=== PATIENT | male | born 1950 | race Caucasian/White ===

== ENCOUNTER 2016-07-24 18:50 | Inpatient (IN) | payer BC ==
[2016-07-24] MEDS ORDERED: NORMAL SALINE 10 ML SYRINGE FLUSH IVP PRN (19:07)
[2016-07-24] MEDS ORDERED: Sodium Chloride 0.9% 1,000 ML PRIMARY IV ONE (19:07)
--- NOTE | 2016-07-24 19:30 | EKG ---
[address] [place] [address] Measurements Intervals [place] Rate: 125 P: 101 MT: 136 QRS: 89 QRSD: 97 T: 79 QT: 308 QTc: 382 Interpretive Statements SINUS TACHYCARDIA WITH OCCASIONAL VENTRICULAR PREMATURE COMPLEXES RIGHT VENTRICULAR CONDUCTION DELAY ABNORMAL RHYTHM ECG Compared to ECG 04/28/2016 02:51:56 Ventricular premature complex(es) now present Electronically Signed On 07-25-16 12:36:46 MDT by Ron Valentino [email or web address]
[2016-07-24 19:39] LABS: BASOPHILS # (AUTO) 0.03 10*3/UL; BASOPHILS % (AUTO) 0.2 % (0-1); EOSINOPHILS # (AUTO) 0.09 10*3/UL; EOSINOPHILS % (AUTO) 0.7 % (0-8); HEMATOCRIT 39.2 % (42.0-52.0); HEMOGLOBIN 12.7 g/dL (14.0-18.0); LYMPHOCYTES # (AUTO) 0.89 10*3/uL; MEAN CORPUSCULAR HEMOGLOBIN 29.8 PG (27-31); MEAN CORPUSCULAR HGB CONC 32.4 g/dL (33-37); MEAN PLATELET VOLUME 9.6 FL (7.4-12.2); MONOCYTES # (AUTO) 0.79 10*3/UL (0.3-0.8); MONOCYTES % (AUTO) 6.2 % (5-15); NEUTROPHILS # (AUTO) 10.96 10*3/UL; NEUTROPHILS % (AUTO) 85.6 % (50-80); RED BLOOD COUNT 4.26 10^6/uL (4.70-6.10)
[2016-07-24 19:41] LABS: PLATELET MORPHOLOGY COMMENT NORMAL MORPHOLOGY (NORM); RBC MORPHOLOGY COMMENT NORMAL MORPHOLOGY (NORM); WBC MORPHOLOGY COMMENT NORMAL MORPHOLOGY (NORM)
[2016-07-24 19:43] LABS: BLOOD UREA NITROGEN 11 mg/dL (7-22); CALCIUM 9.8 mg/dL (8.7-10.7); EST GLOMERULAR FILTRATION > 60 (>60 ml/min/1.73m(2)); SERUM ALBUMIN 4.4 g/dL (3.5-4.8)
[2016-07-24 19:49] LABS: VENOUS PCO2 56.6 mmHg (45-55); VENOUS PH 7.35 (7.32-7.42)
[2016-07-24 19:58] LABS: C-REACTIVE PROTEIN 23.6 mg/dL (0.0-0.9)
--- NOTE | 2016-07-24 20:09 | PDOC ---
Dyspnea HPI - General Chief Complaint: Dyspnea Stated Complaint: DIFFICULTY BREATHING WITH TACHYCARDIA Date Seen by Provider: 07/24/16 Time Seen by Provider: 19:00 Source: POSITIVE: Patient, EMS, Other (daughter) Exam Limitations: POSITIVE: No limitations Treatment Prior to Arrival: REPORTS: Oxygen, Albuterol Neb Treatment, Other ( DuoNeb and Solu-Medrol 125 mg IV per EMS.) - History of Present Illness Initial Comments: The patient is a 65-year-old male who presents to the emergency department with increased shortness of breath by ambulance. He does have a history of COPD as well as a history of lung cancer. He states that he completed a course of radiation and chemotherapy in October of last year. He had a PET scan 2 weeks ago and was told that he is cancer free. He states for the past couple of days he has had increased cough and shortness of breath. This evening he became very short of breath and called 911. When EMS arrived the patient was hypoxic on his baseline 2-1/2 L. He had wheezing with decreased air movement. He received a DuoNeb as well as an albuterol neb treatment per EMS in route. He also received Solu-Medrol 125 mg IV. On arrival to the emergency department he states that the breathing treatments seem to have helped him some. He does wear oxygen at home generally at 2 L and he does use an albuterol inhaler as needed. He does report some chills over the past couple of days and is unsure about fever. He denies any chest pain or any other associated symptoms. - Patient Home Medications Home Medications: Home Medications Gabapentin 1 tab PO QID #120 tab 05/07/16 Guaifenesin [Mucinex] 600 mg PO Q12H #60 tab 05/07/16 Hydrocodone/Acetaminophen [Hydrocodon-Acetaminophen 5-325] 1 - 2 tab PO QID PRN #150 tab 05/07/16 Pregabalin [Lyrica] 1 cap PO TID #28 cap 05/20/16 Lorazepam [Ativan] 1 mg PO Q6H PRN PRN #30 06/28/16 - Patient Allergies Allergies/Adverse Reactions: Allergies Allergy/AdvReac Type Severity Reaction Status Date / Time Sulfa (Sulfonamide Allergy Intermediate upset Verified 04/28/16 02:30 Antibiotics) stomach Past Medical History - heen HEENT History: Denies History, Other (please comment) Additional HEENT History: MISSING TEETH, HOARSENESS OF VOICE Cardiovascular History: Hypertension Respiratory History: Other (please comment) Additional Respiratory History: LUNG CA Gastrointestinal History: Other (please comment) Additional Gastrointestinal History: COLON CA Genitourinary History: Denies History Endocrine History: Denies History Musculoskeletal History: Other (please comment) Prosthesis or Implant: No Additional Musculoskeletal History: right knee surgery Neurological History: Denies History Blood Disorders: Denies History Psychiatric History: Denies History History of Sexually Transmitted Diseases: No Cancer History: Lung, Colon Cancer Treatment / Date(s) of Treatment: RADIATION History of MDRO: No History of Other Communicable Diseases: No Alcohol Use: None Substance Use Type: None Previous Surgical History: No Type / Date of Surgery: COLON RESECTION. RIGHT LEG SURGERY CHILD. KNEE SURGERY Anesthesia Reactions: No Malignant Hyperthermia: No Significant Family History: Heart disease, COPD Additional Family History: parents Past Medical History Reviewed: Reviewed - No Changes ROS - Limitations ROS Limitations: No Limitations Constitution: REPORTS: Chills. DENIES: Fever Cardiovascular: DENIES: Chest Pain, Heart Palpitations, Edema Respiratory: REPORTS: Cough Non Productive, Shortness Of Breath, Wheezing Neurological: REPORTS: Denies Neuro Symptoms Gastrointestinal: REPORTS: Denies GI Symptoms Musculoskeletal: REPORTS: Denies MS Symptoms Eyes: REPORTS: Denies Symptoms ENT: REPORTS: Denies Symptoms, Other (He has had hoarseness since he completed his radiation and chemotherapy) Skin: DENIES: Rash Dyspnea Physical Exam - General Appearance General Appearance: REPORTS: Alert, Cooperative, No Acute Distress, Other (The patient does appear chronically ill and is somewhat cachectic) - HEENT HEENT: POSITIVE: Head Inspection Nml, Eyes Inspection Nml, Ears Inspection Nml, Pharynx Inspect. Nml, Dry Mucous Membranes - Neck Neck: REPORTS: Normal Inspection - Respiratory Respiratory: REPORTS: Speaks Full Sentences, Other (He currently does not exhibit any evidence of respiratory distress, he is able to speak although his voice is hoarse chronically since his last round of radiation and chemotherapy in October. He does have diminished breath sounds bilaterally with some coarse rhonchi noted in the bases, left greater than right) - Cardiovascular Cardiovascular: REPORTS: Regular Rate and Rhythm, Heart Sounds Normal - Abdomen Abdomen: Soft: (All Quadrants), Denies Tenderness: (All Quadrants), No Distention: (All Quadrants) - Skin Skin: REPORTS: Intact, No Rash - Extremities Extremity: Normal ROM: (All Extremities), Normal Inspection: (All Extremities) - Neurological / Psychological Neurological: POSITIVE: Oriented X3, Motor Normal, Sensation Normal Dyspnea Progress - Results Reviewed by me Xrays/CTs/US Reviewed by me: Yes Radiology Findings: Portable chest x-ray shows some increased haziness in the left lower lobe with loss of distinction of the diaphragm concerning for early infiltrate. CT scan of his chest for PE protocol is negative for PE, he does have a spiculated mass in the left upper lobe as well as linear opacities in the lung bases which the radiologist thought was atelectasis however could also represent infiltrate. Lab Results Reviewed: Yes Lab Results:: Laboratory Results 07/24/16 07/24/16 07/24/16 Range/Units 19:07 19:09 19:30 WBC 12.80 H (4.8-10.8) 10^3/uL RBC 4.26 L (4.70-6.10) 10^6/uL Hgb 12.7 L (14.0-18.0) g/dL Hct 39.2 L (42.0-52.0) % MCV 92.0 H (80-90) FL MCH 29.8 (27-31) PG MCHC 32.4 L (33-37) g/dL RDW Std Deviation 44.9 (39-50) fL RDW Coeff of Dianne 13.6 (11.5-14.5) % Plt Count 212 (140-350) 10*3/uL MPV 9.6 (7.4-12.2) FL Immature Gran % (Auto) 0.3 (0-5) % Neut % (Auto) 85.6 H (50-80) % Lymph % (Auto) 7.0 L (10-50) % [place] % (Auto) 6.2 (5-15) % Eos % (Auto) 0.7 (0-8) % Baso % (Auto) 0.2 (0-1) % Immature Gran # (Auto) 0.04 10*3/UL Neut # (Auto) 10.96 10*3/UL Lymph # (Auto) 0.89 10*3/uL [place] # (Auto) 0.79 (0.3-0.8) 10*3/UL Eos # (Auto) 0.09 10*3/UL Baso # (Auto) 0.03 10*3/UL WBC Morphology Comment Normal morphology (NORM) Plt Morphology Comment Normal morphology (NORM) RBC Morph Comment Normal morphology (NORM) D-Dimer 1.13 H (0.00-0.59) mg/L VBG pH 7.35 (7.32-7.42) VBG pCO2 56.6 H (45-55) mmHg VBG HCO3 31.2 H (22-26) mmol/L VBG Base Excess 6 H (-2-2) MMOL/L Sodium 135 (135-145) meq/L Potassium 3.9 (3.8-5.2) meq/L Chloride 91 L (98-112) meq/L Carbon Dioxide 32 (23-33) meq/L Anion Gap 12 (5-20) BUN 11 (7-22) mg/dL Creatinine 0.5 L (0.70-1.50) mg/dL Estimated GFR > 60 (>60 ml/min/1.73m(2)) BUN/Creatinine Ratio 22.00 H (6-20) Glucose 112 H (78-110) mg/dL Calculated Osmolality 279.0 (267-292) mOsm/kg Lactic Acid 2.1 (0.70-2.10) MMOL/L Calcium 9.8 (8.7-10.7) mg/dL Magnesium 2.0 (1.6-2.4) mg/dL Total Bilirubin 0.8 (0.3-1.2) mg/dL AST 16 L (21-57) IU/L ALT 11 L (21-72) IU/L Alkaline Phosphatase 99 (38-126) IU/L Troponin I < 0.012 (< 0.040) ng/mL C-Reactive Protein 23.6 H (0.0-0.9) mg/dL Total Protein 8.3 H (6.1-8.0) g/dL Albumin 4.4 (3.5-4.8) g/dL Globulin 3.9 (2.50-4.10) g/dL Albumin/Globulin Ratio 1.10 L (1.3-2.0) mg/g EKG Interpreted/Reviewed By Me:: Yes EKG Interpretation:: POSITIVE: Normal Sinus Rhythm, Normal Intervals, Normal QRS , Normal ST/T, Other (Sinus tachycardia with no acute ST segment or T-wave changes) - Patient's Progress MDM / ED Course: Blood cultures and lactic acid as well as venous blood gas were drawn when he arrived here in the emergency department. His pH was normal at 7.35 with a PCO2 in the 50s. His white count is slightly elevated and his chest x-ray does show an early infiltrate. He was started on Rocephin and Zithromax. His d- dimer was also elevated and therefore a CTA of his chest was ordered to rule out PE. This was negative for PE. Findings were discussed with the patient and his family. The patient will be admitted for treatment of COPD exacerbation and pneumonia. Dr. Neff has agreed to admit the patient. Patient Care Time - Estimated PCT Patient Care Time (In Minutes): 40 Vital Signs - Recent Vital Signs Vital Signs: Vital Signs (Last 8 hours) Temp Pulse Pulse Resp BP BP Pulse Ox 07/25/16 04:54 97.6 F 81 16 140/63 98 07/25/16 03:42 93 07/25/16 03:00 76 93 07/25/16 01:00 18 93 07/24/16 23:50 98.3 F 100 22 140/69 97 07/24/16 23:15 68 20 123/89 92 07/24/16 22:49 18 - VS Reviewed Vital Signs Reviewed: Yes Discharge Clinical Impression: COPD exacerbation, Pneumonia Discharge Disposition: Admit to Inpatient Condition: Fair Date Decision to Admit to Inpatient: 07/24/16 Time Decision to Admit to Inpatient: 22:10
[2016-07-24] MEDS ORDERED: cefTRIAXone Inj 2 GM in Sodium Chloride 0.9% 100 ML IV ONE (20:14)
--- NOTE | 2016-07-24 20:49 | DI ---
HISTORY: None provided. TECHNIQUE: Single frontal projection. FINDINGS: Linear-appearing opacities in the left upper lobe suggests scarring. There is blunting of the left costophrenic angle which could be due to an effusion with adjacent cons olidation. Hyperinflated lungs suggest underlying COPD. The cardiac silhouette is not enlarged. Th ere is no pneumothorax. There is prominence of both hilar regions. IMPRESSION: 1. Blunted left costophrenic angle could be due to effusion with adjacent consolidation. 2. Findings suggestive of chronic obstructive pulmonary disease. 3. Left upper lobe linear opacities likely representing scarring. Recommend correlation with CT.
--- NOTE | 2016-07-24 22:05 | DI ---
HISTORY: Shortness of breath and elevated d-dimer. TECHNIQUE: Contrast enhanced images of the chest were obtained and submitted for interpretation. FINDINGS: Suboptimal examination due to poor filling of the pulmonary arteries. This limits the sen sitivity of the exam. There is no central pulmonary embolism. There are no large filling defects n oted within the pulmonary trunk, main left and right pulmonary arteries. The remainder of the pulmo nary arteries are suboptimally opacified, and largely nondiagnostic. There are small mediastinal nodes present. There are prominent bilateral hilar nodes. There is no a xillary adenopathy. There is no pleural or pericardial effusion. The trachea, main, and segmental bronchi demonstrate no endobronchial lesions. There are scattered areas of panlobular emphysematous change. There is a somewhat spiculated appearing nodule on series 4, image 45, measuring 2.3 cm in the upper lobe of the left lung. A pseudotumor can have a similar appearance. There are scattered areas of air trapping. Breathing artifacts limit the sensitivity of exam. Scattered linear-appearing opacities in the lung bases favor fibrosis, atelectasis, or scarring. Elie e of these coalesce into areas that have appearances equivocal for pulmonary nodules. There is thickening of the GE junction. Limited sections of the upper abdomen demonstrate no acute f indings. There is no nodular thickening of the adrenal glands suggestive of adrenal hyperplasia. There is atherosclerotic calcification of the aorta. IMPRESSION: 1. No gross CT evidence of acute pulmonary emboli demonstrated. 2. Small mediastinal nodes as well as prominent bilateral hilar nodes. 3. Scattered areas of panlobular emphysematous change. 4. Somewhat spiculated appearing left upper lung nodule. A pseudotumor can have a similar appearance . 5. Scattered areas of air trapping. 6. Scattered linear-appearing opacities in the lung bases favor fibrosis, atelectasis, or scarring. Some of these coalesce into areas that have appearances equivocal for pulmonary nodules. 7. Thickened gastroesophageal junction. 8. Suggestion of adrenal gland hyperplasia.
[2016-07-24] MEDS ORDERED: ONDANSETRON 4 MG/2 ML VIAL IVP PRN (22:49)
[2016-07-24] MEDS ORDERED: LIDOCAINE W/ SODIUM BICARB 0.5 ML SYR SUBD PRN (22:49)
[2016-07-25] MEDS: GUAIFENESIN 600 MG TABLET PO SCH ×3 (00:10→20:08)
[2016-07-25 06:08] LABS: BASOPHILS # (AUTO) 0 10*3/UL; BASOPHILS % (AUTO) 0 % (0-1); EOSINOPHILS # (AUTO) 0 10*3/UL; EOSINOPHILS % (AUTO) 0 % (0-8); HEMATOCRIT 34.1 % (42.0-52.0); HEMOGLOBIN 11.2 g/dL (14.0-18.0); LYMPHOCYTES # (AUTO) 0.37 10*3/uL; MEAN CORPUSCULAR HEMOGLOBIN 29.9 PG (27-31); MEAN CORPUSCULAR HGB CONC 32.8 g/dL (33-37); MEAN CORPUSCULAR VOLUME 91.2 FL (80-90); MEAN PLATELET VOLUME 9.5 FL (7.4-12.2); MONOCYTES # (AUTO) 0.19 10*3/UL (0.3-0.8); MONOCYTES % (AUTO) 1.8 % (5-15); NEUTROPHILS # (AUTO) 9.82 10*3/UL; NEUTROPHILS % (AUTO) 94.4 % (50-80); RED BLOOD COUNT 3.74 10^6/uL (4.70-6.10)
[2016-07-25 06:28] LABS: BLOOD UREA NITROGEN 11 mg/dL (7-22); CALCIUM 9.2 mg/dL (8.7-10.7); EST GLOMERULAR FILTRATION > 60 (>60 ml/min/1.73m(2)); PHOSPHORUS 3.2 mg/dl (2.4-4.3); SERUM ALBUMIN 3.9 g/dL (3.5-4.8)
[2016-07-25 06:35] LABS: PLATELET MORPHOLOGY COMMENT NORMAL MORPHOLOGY (NORM); RBC MORPHOLOGY COMMENT NORMAL MORPHOLOGY (NORM)
[2016-07-25 06:36] LABS: WBC MORPHOLOGY COMMENT SEE COMMENTS (NORM)
[2016-07-25] MEDS: IPRATROPIUM/ALBUTEROL SULFATE 3 ML NEB NEB PRN ×4 (07:16→18:53)
[2016-07-25] MEDS ORDERED: PREGABALIN 75 MG CAPSULE PO SCH (09:00)
[2016-07-25] MEDS ORDERED: PREGABALIN PO SCH (09:00)
[2016-07-25] MEDS ORDERED: Non-Formulary Drug (Gabapentin [Gabapentin] 1 TAB) PO SCH (09:00)
[2016-07-25] MEDS: GABAPENTIN 300 MG CAPSULE PO SCH ×3 (09:23→20:08)
[2016-07-25] MEDS: PREGABALIN 75 MG CAPSULE PO SCH ×3 (09:23→20:08)
[2016-07-25] MEDS: HYDROcodone-APAP 5 MG -325 MG TABLET PO PRN ×2 (09:23→19:29)
[2016-07-25] MEDS: ENOXAPARIN SODIUM 40 MG/0.4 ML SYRINGE SUBCUT SCH (09:24)
--- NOTE | 2016-07-25 14:45 | PDOC ---
History and Physical - History of Present Illness Date and Time of Service: 07/25/2016, 1440 Chief Complaint: Cough and shortness breath History of Present Illness: A very pleasant 65-year-old male with COPD and history of lung cancer treated with radiation and chemotherapy last dose of chemotherapy was in October 2015. The patient came in with complaints of increased shortness of breath that came on fairly suddenly although he states his symptoms did start to get worse as of last . He states that he had cough that was productive with some phlegm although he is noted it's been very difficult to clear overall. He is normally on a couple liters of oxygen and they had to increase it in the emergency room. CT scan of the chest was negative for pulmonary emboli and showed a possible spiculated mass in the left upper lobe, but the patient tells me that he was told he had a negative PET scan recently and that his cancer doctor told him that he had scar tissue in the upper lobe on the left. He has not been losing weight. He has not been on any antibiotics and states breathing therapies really have not helped in terms of hand held inhalers. Nothing else seemed to make him feel better through the week and when he came in for evaluation last night, he states that he feels much better after antibiotics and steroids. He states that he's been cutting back in terms of his smoking and quit completely last when his symptoms started. Past Medical History Medical History: 1. History of colon cancer status post right hemicolectomy May this year. 2. History of lung cancer status post chemoradiation. 3. COPD, on 2 L per nasal cannula. 4. Tobacco abuse Surgical History: 1. History of previous right knee surgery. 2. Status post right hemicolectomy Pertinent Family History: Significant for myocardial infarction in his father of a heart attack somewhere around the age of 62. Past Social History: Quit smoking last . . Has children that are healthy. Retired and lives here in [place], [place]. Tobacco Use: Former Smoker (Quit smoking last .) Substance Use Type: None Alcohol Use: None Medication / Allergies Home Medications: Home Medications Medication Instructions Recorded Confirmed Type Gabapentin 1 tab PO QID #120 tab 05/07/16 Clinic Guaifenesin [Mucinex] 600 mg PO Q12H #60 tab 05/07/16 Clinic Hydrocodone/Acetaminophen 1 - 2 tab PO QID PRN #150 tab 05/07/16 Clinic [Hydrocodon-Acetaminophen 5-325] Pregabalin [Lyrica] 1 cap PO TID #28 cap 05/20/16 Clinic Lorazepam [Ativan] 1 mg PO Q6H PRN PRN #30 06/28/16 Clinic Allergies/Adverse Reactions: Allergies Allergy/AdvReac Type Severity Reaction Status Date / Time Sulfa (Sulfonamide Allergy Intermediate upset Verified 04/28/16 02:30 Antibiotics) stomach Review of Systems - Constitutional Constitutional: REPORTS: Other (Has been maintaining his weight. He states that he has not gained weight and has not lost weight since he finished his chemotherapy and radiation therapy.) - Mouth/Throat Mouth/Throat Exam: REPORTS: Hoarseness (Hoarseness since his last chemotherapy dose. He has not had an ear nose and throat evaluation as of this point.) - Respiratory Respiratory: REPORTS: Cough, Sputum, Dyspnea with Exertion - Cardiovascular Cardiovascular: REPORTS: Negative System Review - Gastrointestinal Gastrointestinal / Abdominal: REPORTS: Negative System Review - Genitourinary Genitourinary: REPORTS: Negative System Review - Musculoskeletal Musculoskeletal: REPORTS: Negative System Review - Hematlogic / Lymphatic Hematologic / Lymphatic: REPORTS: Other (Positive for colon cancer and for lung cancer) - Neurological Neurologic: REPORTS: Negative System Review - Psychiatric Psychiatric: DENIES: Anhedonia, Anxiety, Depressed, Hopelessness, Hospitalization, Negative System Review, Other, Panic, Sadness, See HPI, Suicidality, Tearfullness Exam - Vitals Vital Signs: Vital Signs Temperature 98.8 F Temperature Source Temporal Artery Scan Pulse Rate [Pulse Oximeter] 73 Pulse Rate 77 Respiratory Rate 17 Blood Pressure [Left Arm] 112/50 Blood Pressure 123/89 Pulse Ox 97 Oxygen Flow Rate 3 Oxygen Delivery Method Nasal Cannula Height 6 ft Weight 121 lb 12.8 oz - General General Appearance: POSITIVE: No Acute Distress, Cooperative, Thin - Head Head Exam: POSITIVE: Normocephalic, Atraumatic Additional Head Exam Details: Has temporal wasting noted on exam. - Eye Eye Exam: POSITIVE: Normal Appearance, No Scleral Icterus - ENT ENT Exam: POSITIVE: Mucous Membranes Moist - Neck Neck Exam: POSITIVE: Normal Inspection, No Tenderness, No Thyromegaly - Respiratory Respiratory Exam: POSITIVE: Breathing Non Labored, Decreased Breath Sounds Additional Respiratory Exam Details: Markedly decreased breath sounds on auscultation. - Cardiovascular Cardiovascular Exam: POSITIVE: RRR, No Murmur, No Clicks, No Gallops, No Rubs, No JVD - GI/Abdominal GI/Abdominal Exam: POSITIVE: Normal Bowel Sounds, Non Tender, Non Distended, Soft - External Exam: POSITIVE: Deferred Exam: POSITIVE: Deferred - Extremities Extremities Exam: POSITIVE: No Edema Present, No Cyanosis Present, Clubbing Present (in the digits) - Back Back Exam: POSITIVE: Normal Inspection, No CVA Tenderness - Neurological Neurological Exam: POSITIVE: Alert, Oriented x 3, No Facial Droop, Speech Intact / Clear, Moves All Extremities Equally - Psychiatric Psychiatric Exam: POSITIVE: Normal Affect, Normal Mood - Integumentary Integumentary Exam: POSITIVE: Normal Color, Warm, Dry, Intact - Central Line Examination Central Line Present on Admission: No Results - Labs CBC and BMP: 07/25/16 06:00 07/25/16 06:00 Labs - Last 24 Hours: Laboratory Results 07/25/16 Range/Units 06:00 WBC 10.40 (4.8-10.8) 10^3/uL RBC 3.74 L (4.70-6.10) 10^6/uL Hgb 11.2 L (14.0-18.0) g/dL Hct 34.1 L (42.0-52.0) % MCV 91.2 H (80-90) FL MCH 29.9 (27-31) PG MCHC 32.8 L (33-37) g/dL RDW Std Deviation 43.2 (39-50) fL RDW Coeff of Dianne 13.3 (11.5-14.5) % Plt Count 191 (140-350) 10*3/uL MPV 9.5 (7.4-12.2) FL Immature Gran % (Auto) 0.2 (0-5) % Neut % (Auto) 94.4 H (50-80) % Lymph % (Auto) 3.6 L (10-50) % [place] % (Auto) 1.8 L (5-15) % Eos % (Auto) 0 (0-8) % Baso % (Auto) 0 (0-1) % Immature Gran # (Auto) 0.02 10*3/UL Neut # (Auto) 9.82 10*3/UL Lymph # (Auto) 0.37 10*3/uL [place] # (Auto) 0.19 L (0.3-0.8) 10*3/UL Eos # (Auto) 0 10*3/UL Baso # (Auto) 0 10*3/UL WBC Morphology Comment See comments (NORM) Plt Morphology Comment Normal morphology (NORM) RBC Morph Comment Normal morphology (NORM) Sodium 134 L (135-145) meq/L Potassium 4.6 (3.8-5.2) meq/L Chloride 98 (98-112) meq/L Carbon Dioxide 27 (23-33) meq/L Anion Gap 9 (5-20) BUN 11 (7-22) mg/dL Creatinine 0.4 L (0.70-1.50) mg/dL Estimated GFR > 60 (>60 ml/min/1.73m(2)) BUN/Creatinine Ratio 27.50 H (6-20) Glucose 153 H (78-110) mg/dL Calculated Osmolality 279.0 (267-292) mOsm/kg Calcium 9.2 (8.7-10.7) mg/dL Phosphorus 3.2 (2.4-4.3) mg/dl Albumin 3.9 (3.5-4.8) g/dL - EKG Data -: EKG Interpreted by Me Rate: Tachycardia EKG Shows Normal: Sinus Rhythm - Imaging Status: Image Reviewed by Me (CXR, negative on my review for pneumonia; significant for COPD CT of chest shows possible spiculated mass versus scar. not sure if it is a pneumonia. Looks more suspicious for scar or mass.) Assessment and Plan - Patient Problems (1) COPD exacerbation Current Visit: Yes Status: Acute (2) Hyponatremia Current Visit: No Status: Acute (3) Lung cancer Current Visit: No Status: Acute (4) Protein calorie malnutrition Current Visit: No Status: Acute - Assessment / Plan Additional Assessment/Plan Details: Admit the patient. Antibiotics and steroids for COPD exacerbation. Repeat CT scan in 6-8 weeks to recheck this left upper apex scar tissue versus spiculated mass. Continue to quit smoking and encouraged smoking cessation. Instead of inhaled therapies try nebulized therapies and see if patient gets any better relief of shortness breath and cough. Full CODE STATUS. I discussed the above plan with the patient and he agreed.
[2016-07-25] MEDS ORDERED: ALBUTEROL SULFATE 2.5 MG/3 ML NEB PRN (15:00)
[2016-07-25] MEDS: methylPREDNISolone 40 MG/1 ML VIAL IVP SCH ×2 (15:48→20:05)
[2016-07-25] MEDS: cefTRIAXone Inj 2 GM in Sodium Chloride 0.9% 100 ML IV SCH (20:07)
[2016-07-25] MEDS: LORazepam 1 MG TABLET PO PRN (20:08)
[2016-07-26] MEDS: methylPREDNISolone 40 MG/1 ML VIAL IVP SCH ×4 (03:26→20:50)
[2016-07-26] MEDS: IPRATROPIUM/ALBUTEROL SULFATE 3 ML NEB NEB PRN ×4 (06:43→19:28)
[2016-07-26] MEDS: PREGABALIN 75 MG CAPSULE PO SCH ×3 (08:15→20:49)
[2016-07-26] MEDS: GABAPENTIN 300 MG CAPSULE PO SCH ×3 (08:15→20:50)
[2016-07-26] MEDS: GUAIFENESIN 600 MG TABLET PO SCH ×2 (08:15→20:49)
[2016-07-26] MEDS: ENOXAPARIN SODIUM 40 MG/0.4 ML SYRINGE SUBCUT SCH (08:16)
--- NOTE | 2016-07-26 11:50 | PDOC(PROG) ---
Date and Time of Service: 07/26/2016, 1150 Interval History: No chest pain. Shortness of breath is improved. Overall states that he is feeling a little better. Cough present with minimal production. No nausea or vomiting. Voice is still hoarse. Objective : Data - Labs CBC and BMP: 07/25/16 06:00 07/25/16 06:00 Labs - Last 24 Hours: Laboratory Results 07/25/16 07/26/16 Range/Units 06:08 06:08 Iron 122 (49-181) UG/DL TIBC 169 L (261-462) ug/dL % Saturation 72 H (14-50) % Vitamin B12 483 (239-931) pg/mL Serum Folate 5.09 (2.76-20.0) NG/ML Objective : Exam - General General Appearance: No Acute Distress, Cooperative Additional General Exam Details: Vital Signs - Last Taken Temperature 98.1 F 07/26/16 11:04 Pulse Rate 100 07/26/16 11:04 Respiratory Rate 19 07/26/16 11:04 Blood Pressure 138/55 07/26/16 11:04 Pulse Ox 100 07/26/16 11:04 - Eye Eye Exam: No Scleral Icterus - ENT ENT Exam: Mucous Membranes Moist - Respiratory Respiratory Exam: Breathing Non Labored, Decreased Breath Sounds (Improved slightly from yesterday but decreased airflow overall) - Cardiovascular Cardiovascular Exam: RRR, No Murmur, No Clicks, No Gallops, No Rubs, JVD - GI/Abdominal GI/Abdominal Exam: Normal Bowel Sounds, Non Tender, Non Distended, Soft - Extremities Extremities Exam: No Edema Present, No Cyanosis Present, Clubbing Present - Neurological Neurological Exam: Alert, Oriented x 3, No Facial Droop, Speech Intact / Clear, Moves All Extremities Equally Assessment and Plan - Patient Problems (1) COPD exacerbation Current Visit: Yes Status: Acute (2) Hyponatremia Current Visit: No Status: Acute (3) Lung cancer Current Visit: No Status: Acute (4) Protein calorie malnutrition Current Visit: No Status: Acute - Assessment / Plan Additional Assessment/Plan Details: Continue antibiotics and steroids. Stop fluids, telemetry monitoring. Get appointment arranged with ENT in [place] to evaluate hoarse voice. Typically, I like to titrate steroids a little quicker inpatients but given this patient's situation and history of cancer I think I'll hold off on taper today and start tapering steroids tomorrow if he looks better and continues to improve in terms of his symptoms.
[2016-07-26] MEDS: NORMAL SALINE 10 ML SYRINGE FLUSH IVP PRN ×2 (15:28→20:00)
[2016-07-26] MEDS: HYDROcodone-APAP 5 MG -325 MG TABLET PO PRN (15:28)
[2016-07-26] MEDS ORDERED: CALCIUM CARBONATE 500 MG (TUMS) CHEWABLE TABLET PO PRN (16:50)
[2016-07-26] MEDS ORDERED: PANTOPRAZOLE 40 MG TABLET PO ONE (16:50)
[2016-07-26] MEDS ORDERED: Pneumococcal Vacc 13 Syringe 0.5 ML DISP.SYRIN IM SCH (19:45)
[2016-07-26] MEDS: cefTRIAXone Inj 2 GM in Sodium Chloride 0.9% 100 ML IV SCH (19:59)
[2016-07-26] MEDS ORDERED: Pantoprazole Inj 40 MG in Normal Saline Flush 10 ML IVP ONE (20:52)
[2016-07-26] MEDS: LORazepam 1 MG TABLET PO PRN (22:05)
[2016-07-27] MEDS: methylPREDNISolone 40 MG/1 ML VIAL IVP SCH ×3 (02:46→15:10)
[2016-07-27 04:55] VITALS: RESP 20
[2016-07-27] MEDS: IPRATROPIUM/ALBUTEROL SULFATE 3 ML NEB NEB PRN ×3 (06:40→14:53)
[2016-07-27] MEDS ORDERED: PANTOPRAZOLE 40 MG TABLET PO SCH (07:00)
[2016-07-27 08:13] VITALS: TEMP 97
[2016-07-27] MEDS: GABAPENTIN 300 MG CAPSULE PO SCH ×2 (08:40→14:51)
[2016-07-27] MEDS: PREGABALIN 75 MG CAPSULE PO SCH ×2 (08:40→14:51)
[2016-07-27] MEDS: GUAIFENESIN 600 MG TABLET PO SCH (08:40)
[2016-07-27] MEDS: ENOXAPARIN SODIUM 40 MG/0.4 ML SYRINGE SUBCUT SCH (08:40)
[2016-07-27] MEDS: NORMAL SALINE 10 ML SYRINGE FLUSH IVP PRN (08:41)
--- NOTE | 2016-07-27 09:48 | DI ---
CT SOFT TISSUE NECK W/CONTRAST,07/26/2016 12:01 PM: Clinical History: Hoarseness in a smoker. Previous Exam: None at this facility. Findings: Multiple helically acquired CT images are obtained through the chest following the intravenous admini stration of 95 is a of Isovue 300, and demonstrate a spiculated mass within the left upper lobe abutt ing the major fissure. This measures 1.9 x 2.8 cm in cross-section. Diffuse emphysematous changes are seen. The The thyroid is unremarkable. There is mucoperiosteal thickening involving the left maxillary sinus. There is some rightward deviation of the bony nasal septum. The intraorbital structures are unremarkable. Degenerative changes of the cervical spine are seen. The epiglottis is unremarkable. The arytenoid cartilage and vocal cords are unremarkable. There is no cervical lymphadenopathy. Impression: 1. Spiculated 1.9 x 2.8 cm mass within the left lung upper lobe worrisome for malignancy. Recommend b iopsy for further evaluation. 2. No abnormality of the vocal cords or the epiglottis identified. Correlate clinically, and consider laryngoscopy. 3.Mucoperiosteal thickening involving left maxillary sinus. This most likely represents some maxillar y sinus disease.
--- NOTE | 2016-07-27 13:58 | DCSUMMARY ---
Hospitalization Summary Admit Date: 07/25/16 Discharge Date: 07/27/16 Primary Diagnosis:: severe COPD exacerbation Secondary Diagnosis:: Possible new lung mass and voice hoarseness Hospital Course: This is 65-year-old male that came in with known history of lung cancer having done radiation and chemotherapy and last dose was given last October. He came in with cough and some phlegm production. The patient was admitted, treated with antibiotics, and I added steroids. He is overall feeling much better, cough is present but less shortness of breath and increased activity levels. His oxygen came from 6 L down to 3 L/m per nasal cannula. As her course of antibiotics and steroids for COPD exacerbation. Breathing therapies were administered here in the hospital which helped. In terms of the patient's cancer, a CT scan of the chest ruled out pulmonary emboli, but there is this suspicious mass in the left upper lobe of the lung. The patient also has voice hoarseness which is been present for some time, so we did a neck CT scan which was negative other than the mass noted in the left upper lung. To follow-up on these issues, we've rescheduled the patient with Dr. Robertson, the patient's oncologist, and has sent the films up and we'll send records up to their office as well. The masslike finding is spiculated and looks suspicious for a tumor. For the voice hoarseness, we did arrange an ear nose and throat examination for the patient on 08/09/2016. Hopefully they will be able to do an exam in the office that will help him determine whether or not the patient could have some sort of problem with his Lasix. Today, no completes of chest pain, no shortness breath, no nausea or vomiting. The patient would like to go home. Assessment and Plan: 1. As per discharge assessments noted 2. Disposition: Patient is discharged home. 3. Condition on discharge, stable and improved. 4. Diet: regular diet 5. Activities: resume normal activities, but no smoking 6. Follow-Up: 1. See Dr. Dunn in a week to recheck pneumonia 2. 7. Medications at the Time of Discharge: Home Medications Medication Instructions Recorded Confirmed Type Gabapentin 1 tab PO QID #120 tab 05/07/16 07/26/16 Clinic Guaifenesin [Mucinex] 600 mg PO Q12H #60 tab 05/07/16 07/26/16 Clinic Hydrocodone/Acetaminophen 1 - 2 tab PO QID PRN #150 tab 05/07/16 07/26/16 Clinic [Hydrocodon-Acetaminophen 5-325] Pregabalin [Lyrica] 1 cap PO TID #28 cap 05/20/16 07/26/16 Clinic Lorazepam [Ativan] 1 mg PO Q6H PRN PRN #30 06/28/16 07/26/16 Clinic Azithromycin [Zithromax] 500 mg PO DAILY #3 tab 07/27/16 Rx Cefuroxime Axetil [Ceftin] 500 mg PO BID #8 tablet 07/27/16 Rx Prednisone 10 mg PO DAILY #30 tab 07/27/16 Rx 8. Time, care, counseling and coordination of care for this discharge is greater than 30 minutes. Exam - Vitals Vital Signs: Vital Signs Temperature 97 F Temperature Source Temporal Artery Scan Pulse Rate [Pulse Oximeter] 77 Pulse Rate 100 Respiratory Rate 20 Blood Pressure [Left Arm] 124/54 Blood Pressure 123/89 Pulse Ox 97 Oxygen Flow Rate 3 Oxygen Delivery Method Nasal Cannula Height 6 ft Weight 124 lb 6.4 oz - General General Appearance: POSITIVE: No Acute Distress, Cooperative - Head Head Exam: POSITIVE: Atraumatic - Eye Eye Exam: POSITIVE: No Scleral Icterus - Respiratory Respiratory Exam: POSITIVE: Breathing Non Labored, Coarse Breath Sounds (But improved from admission.) - Cardiovascular Cardiovascular Exam: POSITIVE: RRR, No Murmur, No Clicks, No Gallops, No Rubs, No JVD - GI/Abdominal GI/Abdominal Exam: POSITIVE: Normal Bowel Sounds, Non Tender, Non Distended, Soft - Extremities Extremities Exam: POSITIVE: No Edema Present, No Cyanosis Present, Clubbing Present (In the digits) - Neurological Neurological Exam: POSITIVE: Alert, Oriented x 3, Normal Gait, No Facial Droop, Speech Intact / Clear, Moves All Extremities Equally Data Perinent Studies: Laboratory Results 07/24/16 07/24/16 07/24/16 Range/Units 19:07 19:09 19:30 WBC 12.80 H (4.8-10.8) 10^3/uL RBC 4.26 L (4.70-6.10) 10^6/uL Hgb 12.7 L (14.0-18.0) g/dL Hct 39.2 L (42.0-52.0) % MCV 92.0 H (80-90) FL MCH 29.8 (27-31) PG MCHC 32.4 L (33-37) g/dL RDW Std Deviation 44.9 (39-50) fL RDW Coeff of Dianne 13.6 (11.5-14.5) % Plt Count 212 (140-350) 10*3/uL MPV 9.6 (7.4-12.2) FL Immature Gran % (Auto) 0.3 (0-5) % Neut % (Auto) 85.6 H (50-80) % Lymph % (Auto) 7.0 L (10-50) % Horry % (Auto) 6.2 (5-15) % Eos % (Auto) 0.7 (0-8) % Baso % (Auto) 0.2 (0-1) % Immature Gran # (Auto) 0.04 10*3/UL Neut # (Auto) 10.96 10*3/UL Lymph # (Auto) 0.89 10*3/uL Horry # (Auto) 0.79 (0.3-0.8) 10*3/UL Eos # (Auto) 0.09 10*3/UL Baso # (Auto) 0.03 10*3/UL WBC Morphology Comment Normal morphology (NORM) Plt Morphology Comment Normal morphology (NORM) RBC Morph Comment Normal morphology (NORM) D-Dimer 1.13 H (0.00-0.59) mg/L VBG pH 7.35 (7.32-7.42) VBG pCO2 56.6 H (45-55) mmHg VBG HCO3 31.2 H (22-26) mmol/L VBG Base Excess 6 H (-2-2) MMOL/L Sodium 135 (135-145) meq/L Potassium 3.9 (3.8-5.2) meq/L Chloride 91 L (98-112) meq/L Carbon Dioxide 32 (23-33) meq/L Anion Gap 12 (5-20) BUN 11 (7-22) mg/dL Creatinine 0.5 L (0.70-1.50) mg/dL Estimated GFR > 60 (>60 ml/min/1.73m(2)) BUN/Creatinine Ratio 22.00 H (6-20) Glucose 112 H (78-110) mg/dL Calculated Osmolality 279.0 (267-292) mOsm/kg Lactic Acid 2.1 (0.70-2.10) MMOL/L Calcium 9.8 (8.7-10.7) mg/dL Phosphorus (2.4-4.3) mg/dl Magnesium 2.0 (1.6-2.4) mg/dL Iron (49-181) UG/DL TIBC (261-462) ug/dL % Saturation (14-50) % Total Bilirubin 0.8 (0.3-1.2) mg/dL AST 16 L (21-57) IU/L ALT 11 L (21-72) IU/L Alkaline Phosphatase 99 (38-126) IU/L Troponin I < 0.012 (< 0.040) ng/mL C-Reactive Protein 23.6 H (0.0-0.9) mg/dL Total Protein 8.3 H (6.1-8.0) g/dL Albumin 4.4 (3.5-4.8) g/dL Globulin 3.9 (2.50-4.10) g/dL Albumin/Globulin Ratio 1.10 L (1.3-2.0) mg/g Vitamin B12 (239-931) pg/mL Serum Folate (2.76-20.0) NG/ML 07/25/16 07/25/16 07/26/16 Range/Units 06:00 06:08 06:08 WBC 10.40 (4.8-10.8) 10^3/uL RBC 3.74 L (4.70-6.10) 10^6/uL Hgb 11.2 L (14.0-18.0) g/dL Hct 34.1 L (42.0-52.0) % MCV 91.2 H (80-90) FL MCH 29.9 (27-31) PG MCHC 32.8 L (33-37) g/dL RDW Std Deviation 43.2 (39-50) fL RDW Coeff of Dianne 13.3 (11.5-14.5) % Plt Count 191 (140-350) 10*3/uL MPV 9.5 (7.4-12.2) FL Immature Gran % (Auto) 0.2 (0-5) % Neut % (Auto) 94.4 H (50-80) % Lymph % (Auto) 3.6 L (10-50) % Horry % (Auto) 1.8 L (5-15) % Eos % (Auto) 0 (0-8) % Baso % (Auto) 0 (0-1) % Immature Gran # (Auto) 0.02 10*3/UL Neut # (Auto) 9.82 10*3/UL Lymph # (Auto) 0.37 10*3/uL Horry # (Auto) 0.19 L (0.3-0.8) 10*3/UL Eos # (Auto) 0 10*3/UL Baso # (Auto) 0 10*3/UL WBC Morphology Comment See comments (NORM) Plt Morphology Comment Normal morphology (NORM) RBC Morph Comment Normal morphology (NORM) D-Dimer (0.00-0.59) mg/L VBG pH (7.32-7.42) VBG pCO2 (45-55) mmHg VBG HCO3 (22-26) mmol/L VBG Base Excess (-2-2) MMOL/L Sodium 134 L (135-145) meq/L Potassium 4.6 (3.8-5.2) meq/L Chloride 98 (98-112) meq/L Carbon Dioxide 27 (23-33) meq/L Anion Gap 9 (5-20) BUN 11 (7-22) mg/dL Creatinine 0.4 L (0.70-1.50) mg/dL Estimated GFR > 60 (>60 ml/min/1.73m(2)) BUN/Creatinine Ratio 27.50 H (6-20) Glucose 153 H (78-110) mg/dL Calculated Osmolality 279.0 (267-292) mOsm/kg Lactic Acid (0.70-2.10) MMOL/L Calcium 9.2 (8.7-10.7) mg/dL Phosphorus 3.2 (2.4-4.3) mg/dl Magnesium (1.6-2.4) mg/dL Iron 122 (49-181) UG/DL TIBC 169 L (261-462) ug/dL % Saturation 72 H (14-50) % Total Bilirubin (0.3-1.2) mg/dL AST (21-57) IU/L ALT (21-72) IU/L Alkaline Phosphatase (38-126) IU/L Troponin I (< 0.040) ng/mL C-Reactive Protein (0.0-0.9) mg/dL Total Protein (6.1-8.0) g/dL Albumin 3.9 (3.5-4.8) g/dL Globulin (2.50-4.10) g/dL Albumin/Globulin Ratio (1.3-2.0) mg/g Vitamin B12 483 (239-931) pg/mL Serum Folate 5.09 (2.76-20.0) NG/ML Patient Problems - Patient Problem List (1) COPD exacerbation Current Visit: Yes Status: Acute (2) Hyponatremia Current Visit: No Status: Acute (3) Lung cancer Current Visit: Yes Status: Acute (4) Protein calorie malnutrition Current Visit: Yes Status: Acute (5) Hoarseness of voice Current Visit: Yes Status: Acute
== END 2016-07-27 15:30 | disposition home or self-care (01) | DRG 191 ==
LOC: ER 18:50 → MED/SURG 22:13
PROVIDERS: ADMIT Internal Medicine; ATTEND Internal Medicine
DX: J44.1 Chronic obstructive pulmonary disease with (acute) exacerbation (principal); E87.1 Hypo-osmolality and hyponatremia; E46 Unspecified protein-calorie malnutrition; R91.8 Other nonspecific abnormal finding of lung field; R49.0 Dysphonia; Z72.0 Tobacco use
CPT/HCPCS: 36415; 70491; 71010; 71275; 80053; 80069; 82607; 82746; 82803; 83540; 83550; 83605; 83735; 84484; 85025; 85379; 86140; 87040; 87804; 93005; 93010; 94640; 94761; 96365; 96368; 99285; J0696; J1650; J2920; J3490; J7050; J7620

== ENCOUNTER 2016-08-03 13:27 | Emergency (ER) | payer BC ==
[2016-08-03] MEDS ORDERED: Sodium Chloride 0.9% 1,000 ML PRIMARY IV ONE (13:38)
[2016-08-03] MEDS ORDERED: NORMAL SALINE 10 ML SYRINGE FLUSH IVP PRN (13:38)
[2016-08-03 13:54] LABS: BASOPHILS # (AUTO) 0.02 10*3/UL; BASOPHILS % (AUTO) 0.2 % (0-1); EOSINOPHILS # (AUTO) 0.01 10*3/UL; EOSINOPHILS % (AUTO) 0.1 % (0-8); HEMATOCRIT 44.2 % (42.0-52.0); HEMOGLOBIN 14.7 g/dL (14.0-18.0); MEAN CORPUSCULAR HEMOGLOBIN 30.4 PG (27-31); MEAN CORPUSCULAR HGB CONC 33.3 g/dL (33-37); MEAN CORPUSCULAR VOLUME 91.3 FL (80-90); MEAN PLATELET VOLUME 9.3 FL (7.4-12.2); MONOCYTES # (AUTO) 0.61 10*3/UL (0.3-0.8); MONOCYTES % (AUTO) 6.6 % (5-15); NEUTROPHILS # (AUTO) 7.78 10*3/UL; RED BLOOD COUNT 4.84 10^6/uL (4.70-6.10)
[2016-08-03 13:55] LABS: PLATELET MORPHOLOGY COMMENT NORMAL MORPHOLOGY (NORM); RBC MORPHOLOGY COMMENT NORMAL MORPHOLOGY (NORM); WBC MORPHOLOGY COMMENT NORMAL MORPHOLOGY (NORM)
[2016-08-03 14:00] LABS: BLOOD UREA NITROGEN 20 mg/dL (7-22); BUN/CREATININE RATIO 33.33 (6-20); CALCIUM 9.2 mg/dL (8.7-10.7); EST GLOMERULAR FILTRATION > 60 (>60 ml/min/1.73m(2)); SERUM ALBUMIN 4.2 g/dL (3.5-4.8)
[2016-08-03 14:25] LABS: BILIRUBIN,URINE NEGATIVE (NEG); COLOR,URINE YELLOW; GLUCOSE, URINE (UA) NEGATIVE (NEG); NITRATE,URINE NEGATIVE (NEG); OCCULT BLOOD,URINE Trace-intact (NEG); PROTEIN,URINE TRACE mg/dl (NEG); UROBILINOGEN,URINE 0.2 EU/dL (0.2)
[2016-08-03 14:36] VITALS: RESP 20; TEMP 97.6
[2016-08-03 14:36] LABS: CLARITY,URINE CLEAR (CLEAR); RBC,URINE 0-1 /hpf; URINE SAMPLE TYPE VOID
--- NOTE | 2016-08-03 15:04 | DI ---
PA /LATERAL CHEST X-RAY, 08/03/2016 1:35 PM : Clinical History: Chest injury. The patient fell. Right lower lateral chest wall pain. Previous Exam: 07/24/2016. There is no acute soft tissue or bony abnormality. Heart size is normal. There is no pneumothorax or pulmonary contusion. There is no right pleural effusion. There is chronic blunting of the left costop hrenic angle with chronic scarring in the left upper lung field. The left mainstem bronchus is elevat ed. There is centrilobular emphysema. Mediastinal structures are normal. There are no pulmonary nodul es. Readin. No acute rib fracture is identified. There is no pneumothorax or evidence of a pulmonary contusio n or pleural effusion. 2. There is volume loss in the left upper lung field with retraction of the left hilum superiorly. C hronic blunting is present in the left costophrenic angle. There are no surgical clips present to ind icate this patient has had a partial lobectomy.
[2016-08-03] MEDS ORDERED: KETOROLAC 15 MG/1 ML VIAL IVP ONE (15:08)
[2016-08-03 15:42] LABS: VENOUS PH 7.38 (7.32-7.42)
--- NOTE | 2016-08-03 17:03 | PDOC ---
Fall HPI - General Chief Complaint: Dyspnea Stated Complaint: DYSPNEA Date Seen by Provider: 08/03/16 Time Seen by Provider: 13:30 Source: POSITIVE: Patient Exam Limitations: POSITIVE: No limitations Nurse's Notes Reviewed & Considered: Yes EMS Report Reviewed & Considered: Verbal - History of Present Illness Initial Comments: The patient is a 65-year-old male who is evaluated after a fall at home. He has a known history of lung cancer as well as COPD. He was just recently hospitalized with COPD exacerbation and possible pneumonia. He was discharged from the hospital here about a week ago. His family reports that yesterday he seemed to be doing fairly well. Today he apparently tripped and fell hitting the right side of his chest wall on a cabinet. He became very short of breath and was having pain and EMS was subsequently called. The patient did receive a DuoNeb treatment per EMS which seemed to improve his breathing significantly. He is oxygen saturations remained in the mid to upper 90s on baseline 2 L of O2. He was subsequently transported here to the ER for evaluation. He states that he is feeling better once he arrived here. He does have pain over the right posterior lateral chest wall which is worse with breathing or movement. He denies any abdominal pain or any other associated injury. He did not hit his head and denies any loss of consciousness. Have you received a tetanus shot in the past 10 years?: Unknown - Patient Home Medications Home Medications: Home Medications Gabapentin 1 tab PO QID #120 tab 05/07/16 Hydrocodone/Acetaminophen [Hydrocodon-Acetaminophen 5-325] 1 each PO Q6H #150 tablet 08/02/16 Lorazepam [Ativan] 1 mg PO Q6H PRN PRN #60 08/02/16 Tiotropium Br/Olodaterol HCl [Stiolto Respimat Inhal Powell] 2 inh IH DAILY 08/03 - Patient Allergies Allergies/Adverse Reactions: Allergies Allergy/AdvReac Type Severity Reaction Status Date / Time Sulfa (Sulfonamide AdvReac Intermediate upset Verified 08/03/16 13:50 Antibiotics) stomach Past Medical History - heen HEENT History: Denies History, Other (please comment) Additional HEENT History: MISSING TEETH, HOARSENESS OF VOICE Cardiovascular History: Hypertension Respiratory History: Pneumonia, Home Oxygen Use, Other (please comment) Additional Respiratory History: LUNG CA Gastrointestinal History: Other (please comment) Additional Gastrointestinal History: COLON CA Genitourinary History: Denies History Endocrine History: Denies History Musculoskeletal History: Other (please comment) Prosthesis or Implant: No Additional Musculoskeletal History: right knee surgery Neurological History: Denies History Blood Disorders: Denies History Psychiatric History: Denies History History of Sexually Transmitted Diseases: No Cancer History: Lung, Colon Cancer Treatment / Date(s) of Treatment: RADIATION In Past Year Been Physically Harmed or Verbally Threatened: No History of MDRO: No History of Other Communicable Diseases: No Tobacco Use: Current Every Day Smoker Alcohol Use: None Substance Use Type: None Previous Surgical History: No Type / Date of Surgery: COLON RESECTION. RIGHT LEG SURGERY CHILD. KNEE SURGERY Anesthesia Reactions: No Malignant Hyperthermia: No Significant Family History: Heart disease, COPD Additional Family History: parents Past Medical History Reviewed: Reviewed - No Changes ROS - Limitations ROS Limitations: No Limitations Constitution: REPORTS: Denies Symptoms, Weakness (He does have generalized weakness) Cardiovascular: DENIES: Chest Pain (He has some chest wall pain however denies any anterior chest pain) Respiratory: REPORTS: Hurts To Breathe, Shortness Of Breath Neurological: DENIES: Headache, Numbness, Weakness Gastrointestinal: REPORTS: Denies GI Symptoms. DENIES: Abdominal Pain Musculoskeletal: REPORTS: Denies MS Symptoms Fall Physical Exam - General Appearance General Appearance: POSITIVE: Alert, Cooperative, No Acute Distress, Other (He is cachectic and appears chronically ill) - HEENT HEENT: POSITIVE: Head Inspection Nml, Eyes Inspection Nml, Pharynx Inspect. Nml , PERRL, EOMI, Dry Mucous Membranes - Neck Neck: POSITIVE: Painless ROM, Trachea Midline - Respiratory / CVS Respiratory / CVS: POSITIVE: No Respiratory Distress, Heart Sounds Normal, Regular Rate/Rhythm, Other (He has diminished breath sounds bilaterally however they are equal, he does have tenderness over the right low posterior lateral chest wall) - Abdomen Abdomen: Soft: (All Quadrants), Denies Tenderness: (All Quadrants) - Neuro / Psych Neuro / Psych: POSITIVE: Oriented X3, Motor Normal, Sensation Normal - Skin Skin: POSITIVE: Intact - Extremities Extremity Assessment: Normal ROM: (ALL), Normal Inspection: (ALL) Fall Progress - Results Reviewed by me Xrays/CTs/US Reviewed by me: Yes Discussed with Radiologist: Yes Radiology Findings: No evidence of obvious rib fracture, pneumothorax or other acute finding per radiologist on his chest x-ray Lab Results Reviewed: Yes Lab Results:: Laboratory Results 08/03/16 08/03/16 08/03/16 Range/Units 13:46 13:50 14:00 WBC 9.26 (4.8-10.8) 10^3/uL RBC 4.84 (4.70-6.10) 10^6/uL Hgb 14.7 (14.0-18.0) g/dL Hct 44.2 (42.0-52.0) % MCV 91.3 H (80-90) FL MCH 30.4 (27-31) PG MCHC 33.3 (33-37) g/dL RDW Std Deviation 47.2 (39-50) fL RDW Coeff of Dianne 14.5 (11.5-14.5) % Plt Count 147 (140-350) 10*3/uL MPV 9.3 (7.4-12.2) FL Immature Gran % (Auto) 1.5 (0-5) % Neut % (Auto) 84.0 H (50-80) % Lymph % (Auto) 7.6 L (10-50) % Dixon % (Auto) 6.6 (5-15) % Eos % (Auto) 0.1 (0-8) % Baso % (Auto) 0.2 (0-1) % Immature Gran # (Auto) 0.14 10*3/UL Neut # (Auto) 7.78 10*3/UL Lymph # (Auto) 0.70 10*3/uL Dixon # (Auto) 0.61 (0.3-0.8) 10*3/UL Eos # (Auto) 0.01 10*3/UL Baso # (Auto) 0.02 10*3/UL WBC Morphology Comment Normal morphology (NORM) Plt Morphology Comment Normal morphology (NORM) RBC Morph Comment Normal morphology (NORM) VBG pH 7.38 (7.32-7.42) VBG pCO2 61 H (45-55) mmHg VBG HCO3 36 H (22-26) mmol/L VBG Base Excess 11 H (-2-2) MMOL/L Sodium 128 L (135-145) meq/L Potassium 4.4 (3.8-5.2) meq/L Chloride 83 L (98-112) meq/L Carbon Dioxide 36 H (23-33) meq/L Anion Gap 9 (5-20) BUN 20 (7-22) mg/dL Creatinine 0.6 L (0.70-1.50) mg/dL Estimated GFR > 60 (>60 ml/min/1.73m(2)) BUN/Creatinine Ratio 33.33 H (6-20) Glucose 94 (78-110) mg/dL Calculated Osmolality 268.0 (267-292) mOsm/kg Calcium 9.2 (8.7-10.7) mg/dL Magnesium 1.9 (1.6-2.4) mg/dL Total Bilirubin 0.9 (0.3-1.2) mg/dL AST 24 (21-57) IU/L ALT 40 (21-72) IU/L Alkaline Phosphatase 91 (38-126) IU/L Total Protein 7.4 (6.1-8.0) g/dL Albumin 4.2 (3.5-4.8) g/dL Globulin 3.2 (2.50-4.10) g/dL Albumin/Globulin Ratio 1.30 (1.3-2.0) mg/g Ur Collection Type Urine Color Urine Clarity (CLEAR) Urine pH (5.0-8.5) Ur Specific Beaver (1.005-1.030) Urine Protein (NEG) mg/dl Urine Glucose (UA) (NEG) mg/dL Urine Ketones (NEG) Urine Occult Blood (NEG) Urine Nitrate (NEG) Urine Bilirubin (NEG) Urine Urobilinogen (0.2) EU/dL Ur Leukocyte Esterase (NEG) Urine RBC (NONE) /hpf Urine WBC (NONE) Ur Squamous Epith Cells (NONE) Ur Renal Epithelial Cell (NONE) Urine Crystals Urine Bacteria (NONE) Urine Casts (NONE) Urine Mucus (NONE) Urine Trichomonas (NONE) Urine Yeast (NONE) Ur Culture Indicated? 08/03/16 Range/Units 14:30 WBC (4.8-10.8) 10^3/uL RBC (4.70-6.10) 10^6/uL Hgb (14.0-18.0) g/dL Hct (42.0-52.0) % MCV (80-90) FL MCH (27-31) PG MCHC (33-37) g/dL RDW Std Deviation (39-50) fL RDW Coeff of Dianne (11.5-14.5) % Plt Count (140-350) 10*3/uL MPV (7.4-12.2) FL Immature Gran % (Auto) (0-5) % Neut % (Auto) (50-80) % Lymph % (Auto) (10-50) % Dixon % (Auto) (5-15) % Eos % (Auto) (0-8) % Baso % (Auto) (0-1) % Immature Gran # (Auto) 10*3/UL Neut # (Auto) 10*3/UL Lymph # (Auto) 10*3/uL Dixon # (Auto) (0.3-0.8) 10*3/UL Eos # (Auto) 10*3/UL Baso # (Auto) 10*3/UL WBC Morphology Comment (NORM) Plt Morphology Comment (NORM) RBC Morph Comment (NORM) VBG pH (7.32-7.42) VBG pCO2 (45-55) mmHg VBG HCO3 (22-26) mmol/L VBG Base Excess (-2-2) MMOL/L Sodium (135-145) meq/L Potassium (3.8-5.2) meq/L Chloride (98-112) meq/L Carbon Dioxide (23-33) meq/L Anion Gap (5-20) BUN (7-22) mg/dL Creatinine (0.70-1.50) mg/dL Estimated GFR (>60 ml/min/1.73m(2)) BUN/Creatinine Ratio (6-20) Glucose (78-110) mg/dL Calculated Osmolality (267-292) mOsm/kg Calcium (8.7-10.7) mg/dL Magnesium (1.6-2.4) mg/dL Total Bilirubin (0.3-1.2) mg/dL AST (21-57) IU/L ALT (21-72) IU/L Alkaline Phosphatase (38-126) IU/L Total Protein (6.1-8.0) g/dL Albumin (3.5-4.8) g/dL Globulin (2.50-4.10) g/dL Albumin/Globulin Ratio (1.3-2.0) mg/g Ur Collection Type Void Urine Color Yellow Urine Clarity Clear (CLEAR) Urine pH 7.0 (5.0-8.5) Ur Specific Beaver 1.015 (1.005-1.030) Urine Protein Trace (NEG) mg/dl Urine Glucose (UA) Negative (NEG) mg/dL Urine Ketones Negative (NEG) Urine Occult Blood Trace-intact H (NEG) Urine Nitrate Negative (NEG) Urine Bilirubin Negative (NEG) Urine Urobilinogen 0.2 (0.2) EU/dL Ur Leukocyte Esterase Negative (NEG) Urine RBC 0-1 (NONE) /hpf Urine WBC None (NONE) Ur Squamous Epith Cells None (NONE) Ur Renal Epithelial Cell None (NONE) Urine Crystals None Urine Bacteria None (NONE) Urine Casts None (NONE) Urine Mucus Few (NONE) Urine Trichomonas None (NONE) Urine Yeast None (NONE) Ur Culture Indicated? Culture not set - Patient's Progress MDM / ED Course: Initial venous blood gas revealed a pH of 7.38 with a PCO2 of 61. His blood work is all essentially unremarkable except for a slightly low potassium at 128. His x-ray does not reveal any evidence of pneumothorax or obvious displaced rib fracture. These findings were discussed with the patient and his daughter. Initially his daughter thought that he might need to be admitted in the hospital however the patient thought he was able to go home. The patient was given Toradol 15 mg IV for pain. He is advised to continue ibuprofen as needed for pain and has hydrocodone at home which he can take as needed for pain. He is advised return to the emergency room if he develops increased shortness of breath, increased pain, any worsening or change in symptoms. - Consult Counseled: POSITIVE: Patient, Family, RE: Lab Results, RE: Radiology Results, RE : DX, RE: Need for F/U Patient Care Time - Estimated PCT Patient Care Time (In Minutes): 30 Vital Signs - Recent Vital Signs Vital Signs: Vital Signs (Last 8 hours) Temp Pulse Resp BP Pulse Ox 08/03/16 13:26 97.6 F 107 H 20 114/64 96 - VS Reviewed Vital Signs Reviewed: Yes Discharge Clinical Impression: Chest wall contusion Discharge Disposition: Discharged to Home Condition: Fair Patient Instructions Given at Discharge: Contusion in Adults (ED), Chest Wall Pain (ED) Additional Instructions: The chest x-ray does not show any obvious displaced rib fractures or evidence of punctured lung. It is possible that there may be a nondisplaced crack in a rib or this may just be bruising. Recommend continuation of ibuprofen 600 mg every 6 hours as needed for pain. You can take your hydrocodone as needed for pain as well. Return to the emergency room if increased pain or shortness of breath, increased weakness, increased abdominal pain or fever, any worsening or change in symptoms. Recommend follow-up with primary care in 3-5 days. Follow Up With: NONE,NONE [Primary Care Provider] -
== END 2016-08-03 16:45 | disposition home or self-care (01) ==
LOC: ER 13:27
DX: S20.211A Contusion of right front wall of thorax, initial encounter (principal); R06.02 Shortness of breath; W01.198A Fall on same level from slipping, tripping and stumbling with subsequent striking against other object, initial encounter
CPT/HCPCS: 36415; 71020; 80053; 81001; 81003; 82803; 83735; 85025; 96374; 99283; J1885

== ENCOUNTER 2016-12-17 23:08 | Emergency (ER) | payer BC ==
[2016-12-17] MEDS: Sodium Chloride 0.9% 1,000 ML PRIMARY IV ONE (23:10)
[2016-12-17] MEDS ORDERED: NORMAL SALINE 10 ML SYRINGE FLUSH IVP PRN (23:36)
[2016-12-17] MEDS: ALBUTEROL SULFATE 2.5 MG/3 ML NEB ONE (23:51)
[2016-12-17 23:53] LABS: BASOPHILS # (AUTO) 0.07 10*3/UL; BASOPHILS % (AUTO) 1.4 % (0-1); EOSINOPHILS # (AUTO) 0.23 10*3/UL; EOSINOPHILS % (AUTO) 4.5 % (0-8); HEMATOCRIT 37.1 % (42.0-52.0); HEMOGLOBIN 12.3 g/dL (14.0-18.0); LYMPHOCYTES # (AUTO) 1.18 10*3/uL; MEAN CORPUSCULAR HGB CONC 33.2 g/dL (33-37); MEAN CORPUSCULAR VOLUME 93.5 FL (80-90); MEAN PLATELET VOLUME 9.4 FL (7.4-12.2); MONOCYTES # (AUTO) 0.45 10*3/UL (0.3-0.8); MONOCYTES % (AUTO) 8.9 % (5-15); NEUTROPHILS # (AUTO) 3.15 10*3/UL; RED BLOOD COUNT 3.97 10^6/uL (4.70-6.10)
[2016-12-18] LABS: BLOOD UREA NITROGEN 7 mg/dL (7-22); BUN/CREATININE RATIO 11.66 (6-20); CALCIUM 9.5 mg/dL (8.7-10.7); EST GLOMERULAR FILTRATION > 60 (>60 ml/min/1.73m(2)); SERUM ALBUMIN 4.3 g/dL (3.5-4.8)
[2016-12-18 00:02] LABS: C-REACTIVE PROTEIN 2.9 mg/dL (0.0-0.9); MAGNESIUM 1.9 mg/dL (1.6-2.4); PLATELET MORPHOLOGY COMMENT NORMAL MORPHOLOGY (NORM); RBC MORPHOLOGY COMMENT NORMAL MORPHOLOGY (NORM); WBC MORPHOLOGY COMMENT NORMAL MORPHOLOGY (NORM)
[2016-12-18 00:05] VITALS: TEMP 98.1
[2016-12-18 00:08] LABS: VENOUS PH 7.36 (7.32-7.42)
--- NOTE | 2016-12-18 01:56 | DI ---
HISTORY: Lung mass. Dyspnea. COMPARISON: Report only from CT of the chest from 07/25/2016. TECHNIQUE: CT of the chest was performed with contrast and the images were submitted for interpreta tion. FINDINGS: The heart is normal in size. The aorta is within normal limits, noting extensive atherosc lerotic calcifications. Coronary artery calcifications are noted. The pulmonary vascularity is with in normal limits. There is no pulmonary embolus to the level of the segmental arteries, excluding th e left upper lobe. The left superior hilar soft tissue mass extending into the left upper lobe limit s evaluation of the involved extrinsically compressed bronchovascular vasculature. Linear configurat ion of the left upper lobe mass limits definitive measurement, there is central portion measures up t o 2.2 cm in craniocaudal dimension. While images from the comparison study were not able to be locat ed, the measurement given in the previous report is grossly stable to today's study. However, the ch stevie in appearance of the mass cannot be commented on. Otherwise, the central airway is patent. The re is extensive centrilobular and paraseptal emphysema. There is no evidence of pleural effusion or pneumothorax. No acute skeletal pathology is seen. Gastric surgical clips are noted. Otherwise, the imaged portions of the upper abdomen are grossly un remarkable. IMPRESSION: 1. Left upper lobe mass measuring 2.2 cm with extension to the lateral pleural surface and hilum. Co mment on stability as described above. No evidence of metastatic disease. 2. No pulmonary embolus to level of the segmental arteries, excluding the left upper lobe. The previ ously described mass causes extrinsic compression of the left hilar bronchovascular vasculature. 3. Extensive emphysema. NOTIFICATION: The above findings were phoned to Dulce Camara in the ER Department on 12/18/2016 at 04 :23 AM EST.
[2016-12-18] MEDS: ALBUTEROL SULFATE 2.5 MG/3 ML NEB ONE (01:58)
--- NOTE | 2016-12-18 02:02 | PDOC ---
Dyspnea HPI - General Chief Complaint: Respiratory Complaint Stated Complaint: DIFFICULTY BREATHING Date Seen by Provider: 12/17/16 Time Seen by Provider: 23:20 Source: POSITIVE: Patient, EMS, Other (Son) Exam Limitations: POSITIVE: No limitations Treatment Prior to Arrival: REPORTS: Other (DuoNeb nebulizer treatment and Solu- Medrol 125 mg IV given by paramedics in route to hospital) Nurse's Notes Reviewed & Considered: Yes EMS Report Reviewed & Considered: Verbal - History of Present Illness Initial Comments: The patient is a 66-year-old male who is brought to the emergency room by ambulance. Patient states that tonight he experienced an exacerbation of his chronic dyspnea. Patient has a long-standing history of severe COPD and emphysema and a history of smoking all of his adult life. He continues to smoke one half to one pack of cigarettes per day. Patient also has a history of lung cancer for which he has undergone chemotherapy and radiation therapy. He states the radiation therapy has affected his vocal cords and he now has chronic hoarseness. He states his lung cancer was diagnosed several months ago. He states he has a follow-up appointment with his oncologist in January. Patient states he has a chronic loose cough. He is on oxygen by nasal cannula continuously, 2-3 L/m. He denies any fevers. No chest pain. Patient received a DuoNeb nebulizer treatment and 125 mg of Solu-Medrol IV by paramedics in route to the emergency room, and he states he feels better now. His chronic cough is productive of mucoid sputum; he states is been no change in the character of his sputum. No hemoptysis. Oxygen saturation on L by nasal cannula at his house was reportedly 90%, according to paramedics. On arrival here his oxygen saturation is 93-94% on 2 L of supplemental oxygen by nasal cannula. Body Location Affected: REPORTS: Chest Timing: REPORTS: Gradual Duration: <24 hours Severity: Moderate Quality: REPORTS: Other (Patient denies any pain anywhere) Initiating Event: DENIES: Upper Respiratory Illness, Out of Medications, Sports , Exercise, Aspiration, Choking, Allergy, Exposure - Smoke, Exposure - Mold, Exposure - Other Allergen Context: REPORTS: Activity Exacerbated By: REPORTS: Exertion Associated Symptoms: REPORTS: Productive Cough (Chronic cough productive of mucoid sputum). DENIES: Fever, Chills, Sweating, Chest Pain, Chest Discomfort, Left Chest, Right Chest, Central Chest, Chest Heaviness, Chest Tightness, Painful Breathing, Radiation to Back, Radiation to Jaw, Radiation to Arm, Bloody Cough, Heart Racing, Leg Pain, Calf Pain, Ankle Swelling, Leg Swelling, Dizziness, Light-Headedness, Anxiety, Tingling - Hands, Tingling - Face, Muscle Spasms - Hands, Muscle Spasms - Feet Similar Symptoms Previously: Yes Recently seen/treated/hospitalized: Yes Any Prior Injuries Related to Current Complaint?: No - Patient Home Medications Home Medications: Home Medications Umeclidinium [place] [Incruse Ellipta] 62.5 mcg INH QD #1 inhaler 09/29/16 Gabapentin 1 tab PO QID #120 tab 11/22/16 Hydrocodone/Acetaminophen [Hydrocodon-Acetaminophen 5-325] 1 each PO Q6H #150 tablet 12/10/16 Lorazepam [Ativan] 1 mg PO Q6H PRN PRN #60 12/10/16 Albuterol/Ipratrop Neb Soln [Duoneb Neb Soln] 3 ml IH Q4H PRN #25 ampul.neb - Patient Allergies Allergies/Adverse Reactions: Allergies Allergy/AdvReac Type Severity Reaction Status Date / Time Sulfa (Sulfonamide AdvReac Intermediate upset Verified 08/03/16 13:50 Antibiotics) stomach Past Medical History - heen HEENT History: Denies History Additional HEENT History: MISSING TEETH, HOARSENESS OF VOICE, crimped vocal cords Cardiovascular History: Hypertension Respiratory History: COPD, Pneumonia, Home Oxygen Use, Other (please comment) Additional Respiratory History: LUNG CA Gastrointestinal History: Other (please comment) Additional Gastrointestinal History: COLON CA Genitourinary History: Denies History Endocrine History: Denies History Musculoskeletal History: Other (please comment) Prosthesis or Implant: No Additional Musculoskeletal History: right knee surgery Neurological History: Denies History Blood Disorders: Denies History Psychiatric History: Denies History History of Sexually Transmitted Diseases: No Cancer History: Lung, Colon Cancer Treatment / Date(s) of Treatment: RADIATION In Past Year Been Physically Harmed or Verbally Threatened: No History of MDRO: No History of Other Communicable Diseases: No Tobacco Use: Current Every Day Smoker Alcohol Use: None Substance Use Type: None Previous Surgical History: No Type / Date of Surgery: COLON RESECTION. RIGHT LEG SURGERY CHILD. KNEE SURGERY Anesthesia Reactions: No Malignant Hyperthermia: No Significant Family History: Heart disease, COPD Additional Family History: parents Past Medical History Reviewed: Reviewed - No Changes ROS - Limitations ROS Limitations: No Limitations Constitution: REPORTS: Denies Symptoms Cardiovascular: REPORTS: Denies Cardiac Symptoms Respiratory: REPORTS: Cough Productive (Chronic cough productive of mucoid sputum), Shortness Of Breath Neurological: REPORTS: Denies Neuro Symptoms Gastrointestinal: REPORTS: Denies GI Symptoms Endocrine: REPORTS: Denies Symptoms Musculoskeletal: REPORTS: Denies MS Symptoms Genitourinary: REPORTS: Denies Symptoms Eyes: REPORTS: Denies Symptoms ENT: REPORTS: Denies Symptoms Skin: REPORTS: Denies Skin Symptoms Lympathic: REPORTS: Denies Lympathic Symptoms Immunologic: POSITIVE: Denies Symptoms Psychiatric: POSITIVE: Denies Psych Symptoms Dyspnea Physical Exam - General Appearance General Appearance: REPORTS: Alert, Cooperative, No Acute Distress, No Evidence of Trauma - HEENT HEENT: POSITIVE: Head Inspection Nml, Eyes Inspection Nml, Ears Inspection Nml, Nose Inspection Nml, Oral/Dental Inspect. Nml, Pharynx Inspect. Nml, PERRL, EOMI - Neck Neck: REPORTS: Normal Inspection, No Carotid Bruit - Respiratory Respiratory: REPORTS: No Respiratory Distress, No Pleuritic Chest Pain, Speaks Full Sentences, No Pain on Inspiration, Decreased Air Movement. DENIES: Breath Sounds Normal (Breath sounds. Distant), Respiratory Distress, Fatigue, Wheezes , Rales, Rhonchi, Prolonged Expirations, Accessory Muscle Use, Retractions, Splinting, Dull on Percussion, Chest Wall Tenderness, Speaks Broken Sentences, Stridor, Respiratory Failure - Cardiovascular Cardiovascular: REPORTS: Regular Rate and Rhythm, Heart Sounds Normal, Equal Pulses, Strong Pulses, No Murmur, No Gallop, No Friction Rub, No JVD Peripheral Pulses: Radial (R): 2+, Radial (L): 2+ - Abdomen Abdomen: Soft: (All Quadrants), Normal Bowel Sounds: (All Quadrants), Denies Tenderness: (All Quadrants), No Splenomegaly: (All Quadrants), No Hepatomegaly: (All Quadrants), No Guarding: (All Quadrants), No Rebound: (All Quadrants), No Palpable Pulse: (All Quadrants), No Palpabale Mass: (All Quadrants), No Distention: (All Quadrants), No Rigidity: (All Quadrants) - Skin Skin: REPORTS: Intact, Normal For Race, Warm, Dry, No Rash - Extremities Extremity: Non-Tender: (All Extremities), Normal ROM: (All Extremities), Normal Inspection: (All Extremities) - Neurological / Psychological Neurological: POSITIVE: Oriented X3, leach tank tender Normal As Tested, Motor Normal, Sensation Normal, 5, 6 Dyspnea Progress - Results Reviewed by me Xrays/CTs/US Reviewed by me: Yes Discussed with Radiologist: No Radiology Findings: Mass left upper lung field. CT scan chest with IV contrast reported verbally by radiologist as showing no evidence of blood clot and is essentially unchanged from previous CT scan. Lab Results Reviewed: Yes Lab Results:: Laboratory Results 12/17/16 12/17/16 Range/Units 22:53 23:40 WBC 5.08 (4.8-10.8) 10^3/uL RBC 3.97 L (4.70-6.10) 10^6/uL Hgb 12.3 L (14.0-18.0) g/dL Hct 37.1 L (42.0-52.0) % MCV 93.5 H (80-90) FL MCH 31.0 (27-31) PG MCHC 33.2 (33-37) g/dL RDW Std Deviation 39.8 (39-50) fL RDW Coeff of Dianne 11.9 (11.5-14.5) % Plt Count 208 (140-350) 10*3/uL MPV 9.4 (7.4-12.2) FL Immature Gran % (Auto) 0 (0-5) % Neut % (Auto) 62.0 (50-80) % Lymph % (Auto) 23.2 (10-50) % Summers % (Auto) 8.9 (5-15) % Eos % (Auto) 4.5 (0-8) % Baso % (Auto) 1.4 H (0-1) % Immature Gran # (Auto) 0 10*3/UL Neut # (Auto) 3.15 10*3/UL Lymph # (Auto) 1.18 10*3/uL Summers # (Auto) 0.45 (0.3-0.8) 10*3/UL Eos # (Auto) 0.23 10*3/UL Baso # (Auto) 0.07 10*3/UL WBC Morphology Comment Normal morphology (NORM) Plt Morphology Comment Normal morphology (NORM) RBC Morph Comment Normal morphology (NORM) D-Dimer 0.33 (0.00-0.59) mg/L VBG pH 7.36 (7.32-7.42) VBG pCO2 59 H (45-55) mmHg VBG HCO3 34 H (22-26) mmol/L VBG Base Excess 8 H (-2-2) MMOL/L Sodium 131 L (135-145) meq/L Potassium 4.2 (3.8-5.2) meq/L Chloride 88 L (98-112) meq/L Carbon Dioxide 36 H (23-33) meq/L Anion Gap 7 (5-20) BUN 7 (7-22) mg/dL Creatinine 0.6 L (0.70-1.50) mg/dL Estimated GFR > 60 (>60 ml/min/1.73m(2)) BUN/Creatinine Ratio 11.66 (6-20) Glucose 112 H (78-110) mg/dL Calculated Osmolality 270.0 (267-292) mOsm/kg Calcium 9.5 (8.7-10.7) mg/dL Magnesium 1.9 (1.6-2.4) mg/dL Total Bilirubin 0.3 (0.3-1.2) mg/dL AST 55 (21-57) IU/L ALT 29 (21-72) IU/L Alkaline Phosphatase 79 (38-126) IU/L C-Reactive Protein 2.9 H (0.0-0.9) mg/dL Total Protein 7.4 (6.1-8.0) g/dL Albumin 4.3 (3.5-4.8) g/dL Globulin 3.0 (2.50-4.10) g/dL Albumin/Globulin Ratio 1.40 (1.3-2.0) mg/g - Patient's Progress Pain Medication Addressed: POSITIVE: Not Applicable School/Work Release Addressed: POSITIVE: Not Applicable Re-Examine Time: 01:30 Re-Examine Comment: Patient rested while in the emergency room. Oxygen saturations remained above 92%. No evidence of pneumonia no radiographic evidence of progression of his cancer. Chest x-ray shows severe emphysema. In the emergency room patient received another DuoNeb nebulizer treatment and an albuterol treatment prior to discharge. Patient was given a prescription for DuoNeb ampules and [facility] was contacted to arrange for the patient to have a nebulizer. Patient was very strongly advised to stop smoking. Status: POSITIVE: Improved, Re-Examined Air Movement: POSITIVE: Fair - Consult Counseled: POSITIVE: Patient, Family (Son), RE: Lab Results, RE: Radiology Results, RE: DX, RE: Need for F/U Patient Care Time - Estimated PCT Patient Care Time (In Minutes): 50 Vital Signs - Recent Vital Signs Vital Signs: Vital Signs (Last 8 hours) Temp Pulse Resp BP Pulse Ox 12/18/16 00:53 114 H 24 140/68 94 12/17/16 23:50 110 H 26 H 162/72 100 12/17/16 23:10 98.1 F 114 H 28 H 164/87 93 - VS Reviewed Vital Signs Reviewed: Yes Discharge Clinical Impression: COPD exacerbation, Emphysema lung, Tobacco use, Lung cancer Discharge Disposition: Discharged to Home Condition: Stable Prescriptions / Orders: Albuterol/Ipratrop Neb Soln [Duoneb Neb Soln] 3 ml IH Q4H PRN #25 ampul.neb PRN Reason: Shortness Of Breath Patient Instructions Given at Discharge: COPD (Chronic Obstructive Pulmonary Disease) (ED) Additional Instructions: CT scan of the chest shows that your lung cancer is essentially unchanged radiographically. Please continue your oxygen by nasal cannula. DuoNeb nebulizer treatment every 4 hours as necessary for shortness of breath. Follow- up with your oncologist as already arranged. Follow-up with your primary care provider. Return here anytime if condition worsens in any way. Please stop smoking. Follow Up With: [facility] [Primary Care Provider] - (Instructions as above. Return anytime if condition worsens. Follow-up with your oncologist and primary care provider. Please stop smoking.)
[2016-12-18 02:18] VITALS: RESP 22
--- NOTE | 2016-12-18 08:35 | DI ---
PA /LATERAL CHEST X-RAY, 12/17/2016 10:36 PM : Clinical History: Dyspnea. Cough. Previous Exam: 08/03/2016. There is no acute soft tissue or bony abnormality. Heart size is normal. There is no acute infiltrate or effusion. Chronic blunting is present in the left upper lobe consistent with scarring. There is a density in the left upper lobe that remains unchanged from the prior exam and this either represents a mass versus atelectatic scarring. Volume loss is noted in the left upper lobe with elevation of th e left mainstem bronchus. There is centrilobular emphysema with pulmonary arterial hypertension. Medi astinal structures are otherwise normal. Readin. There is no acute infiltrate or effusion. 2. Centrilobular emphysema with pulmonary arterial hypertension. There is a density in the left uppe r lobe that is unchanged from the previous exam and this either represents a lung mass versus atelect atic scarring. 3. Volume loss is noted in the left lobe without evidence of prior surgery to this area.
== END 2016-12-18 02:15 | disposition home or self-care (01) ==
LOC: ER 23:08
DX: J44.0 Chronic obstructive pulmonary disease with (acute) lower respiratory infection (principal); J20.9 Acute bronchitis, unspecified; R06.00 Dyspnea, unspecified; R06.02 Shortness of breath; J43.9 Emphysema, unspecified; C34.12 Malignant neoplasm of upper lobe, left bronchus or lung; Z72.0 Tobacco use
CPT/HCPCS: 36415; 71020; 71260; 80053; 82803; 83735; 85025; 85379; 86140; 87040; 94640; 99283

== ENCOUNTER 2018-07-19 05:30 | Observation (INO) ==
--- NOTE | 2018-07-19 05:50 | PDOC ---
General Adult HPI - General Chief Complaint: Respiratory Complaint Stated Complaint: difficulty breathing Date Seen by Provider: 07/19/18 Time Seen by Provider: 05:35 Source: POSITIVE: Patient, EMS, Other (family) Exam Limitations: POSITIVE: No limitations Nurse's Notes Reviewed & Considered: Yes - History of Present Illness Initial Comment: The patient is a 67-year-old male with a known history of lung cancer and metastatic colon cancer who is brought to the emergency department by ambulance. His daughter apparently found him on the floor without his oxygen on laying next to his bed. His oxygen saturations at home were initially in the low 80s. EMS was subsequently called and placed him back on oxygen and gave him a neb treatment in route. The patient is currently enrolled in home hospice. He has declined any further aggressive treatments for his cancer. His daughter reports that he "does not want to at home". Have you received a tetanus shot in the past 10 years?: Unknown - Patient Home Medications Home Medications: Home Medications gabapentin 600 mg tablet 600 mg PO QID #120 tab 05/11/18 hydrocodone 5 mg-acetaminophen 325 mg tablet See Rx Instructions PO Q6H PRN #150 tab 06/28/18 - Patient Allergies Allergies/Adverse Reactions: Allergies Allergy/AdvReac Type Severity Reaction Status Date / Time Sulfa (Sulfonamide AdvReac Intermediate upset Verified 07/19/18 05:40 Antibiotics) stomach Past Medical History - heen HEENT History: Other (please comment) Additional HEENT History: MISSING TEETH, HOARSENESS OF VOICE, crimped vocal cords Cardiovascular History: Hypertension Respiratory History: COPD, Pneumonia, Home Oxygen Use, Other (please comment) Additional Respiratory History: LUNG CA Gastrointestinal History: Other (please comment) Additional Gastrointestinal History: COLON CA Genitourinary History: Denies History Endocrine History: Denies History Musculoskeletal History: Other (please comment) Prosthesis or Implant: No Additional Musculoskeletal History: right knee surgery Neurological History: Denies History Blood Disorders: Denies History Psychiatric History: Denies History History of Sexually Transmitted Diseases: No Cancer History: Lung, Colon Cancer Treatment / Date(s) of Treatment: RADIATION History of MDRO: No History of Other Communicable Diseases: No Alcohol Use: None In the Past 12 Months, Have Used or Abuse Any Substance: None Previous Surgical History: No Type / Date of Surgery: COLON RESECTION. RIGHT LEG SURGERY CHILD. KNEE SURGERY Anesthesia Reactions: No Malignant Hyperthermia: No Significant Family History: Heart disease, COPD Additional Family History: parents Past Medical History Reviewed: Reviewed - No Changes ROS - Limitations ROS Limitations: Clinical Condition General Adult Exam - General Appearance General Appearance: POSITIVE: Other (The patient is awake, he is cachectic and appears chronically ill, minimal responsiveness) - HEENT HEENT: POSITIVE: Head Inspection Nml - Respiratory Respiratory: POSITIVE: Other (Coarse breath sounds bilaterally, respirations are unlabored) - Cardiovascular Cardiovascular: POSITIVE: Other (He does have sinus tachycardia on the monitor with a rate in the 120s) Peripheral Pulses: Dorsalis-pedis (R): 2+, Dorsalis-pedis (L): 2+ General Adult Progress - Patient's Progress MDM / ED Course: Advanced directives were discussed with the patient's daughter. He has clearly indicated that he does not want to pursue any further aggressive treatments for his cancer. He is currently enrolled in home hospice. The patient is concerned about dying home and would rather not do that. His daughter thinks it would be best for him to be admitted for comfort care at this time. At this time the primary focus of the patient's care is palliative in nature. Dr. Neff has agreed to admit the patient for further care. - Consult Counseled: POSITIVE: Family, RE: DX Patient Care Time - Estimated PCT Patient Care Time (In Minutes): 20 Vital Signs - Recent Vital Signs Vital Signs: Vital Signs (Last 8 hours) Temp Pulse Resp BP Pulse Ox 07/19/18 05:30 96.0 F L 127 H 26 H 127/59 100 - VS Reviewed Vital Signs Reviewed: Yes Discharge Clinical Impression: Metastatic cancer to liver, Squamous cell carcinoma of lung Condition: Poor Follow Up With: [facility] [Primary Care Provider] -
[2018-07-19 06:02] LABS: BLOOD UREA NITROGEN 18 mg/dL (7-22); BUN/CREATININE RATIO 25.71 (6-20); SERUM ALBUMIN 3.5 g/dL (3.5-4.8)
[2018-07-19 06:19] LABS: BASOPHILS # (AUTO) 0.02 10*3/UL; BASOPHILS % (AUTO) 0.1 % (0-1); EOSINOPHILS # (AUTO) 0.01 10*3/UL; EOSINOPHILS % (AUTO) 0 % (0-8); Hematocrit [HCT] 26.8 % (42.0-52.0); Hemoglobin [HGB] 8.3 g/dL (14.0-18.0); LYMPHOCYTES # (AUTO) 0.59 10*3/uL; MEAN CORPUSCULAR HEMOGLOBIN 28.9 PG (27-31); MEAN CORPUSCULAR VOLUME 93.4 FL (80-90); MEAN PLATELET VOLUME 9.1 FL (7.4-12.2); MONOCYTES # (AUTO) 0.99 10*3/UL (0.3-0.8); MONOCYTES % (AUTO) 4.5 % (5-15); NEUTROPHILS # (AUTO) 20.35 10*3/UL; NEUTROPHILS % (AUTO) 92.2 % (50-80); RED BLOOD COUNT 2.87 10^6/uL (4.70-6.10)
[2018-07-19 06:25] LABS: PLATELET MORPHOLOGY COMMENT NORMAL MORPHOLOGY (NORM); RBC MORPHOLOGY COMMENT NORMAL MORPHOLOGY (NORM); WBC MORPHOLOGY COMMENT NORMAL MORPHOLOGY (NORM)
[2018-07-19] MEDS: Sodium Chloride 0.9% 1,000 ML PRIMARY IV ONE ×2 (07:05→08:56)
[2018-07-19] MEDS ORDERED: LIDOCAINE W/ SODIUM BICARB 0.5 ML SYR SUBD PRN (08:10)
[2018-07-19] MEDS ORDERED: HYDROmorphone 2 MG/1 ML IVP PRN (08:10)
[2018-07-19] MEDS ORDERED: CALCIUM CARBONATE 500 MG (TUMS) CHEWABLE TABLET PO PRN (08:10)
[2018-07-19] MEDS ORDERED: ONDANSETRON 4 MG/2 ML VIAL IVP PRN (08:10)
[2018-07-19 08:20] VITALS: BP 125/87; RESP 24; TEMP 98; O2SAT 88
[2018-07-19] MEDS ORDERED: MORPHINE SULFATE 10 MG/1 ML IVP ONE (09:11)
[2018-07-19] MEDS ORDERED: DIAZEPAM 10 MG/2 ML (5 MG/1 ML) CARPUJECT IVP ONE (09:12)
[2018-07-19] MEDS ORDERED: MORPHINE SULFATE 10 MG/1 ML ONE (09:16)
--- NOTE | 2018-07-19 09:27 | PDOC ---
HPI - History of Present Illness Date of Service: 07/19/18 Time of Service: 09:22 Chief Complaint: Found down History of Present Illness: This very pleasant 67-year-old male who unfortunately is suffering from metastatic lung cancer to the liver who was recently placed on the hospice program. He was found down at home, covered in feces, and he was brought in for evaluation as he was altered, confused, and there is concern about the patient. He has been essentially nonverbal here. I spoke with his daughter, Nikki, and she denied any other symptoms of chest pain, shortness breath, nausea or vomiting. She stated that he was conversant yesterday. He was found to be septic with the heart rate above 120s, respiratory rate in the 20s and a white count of over 22,000. I asked the patient's daughter about whether or not she wanted proceed with care. Based on the risks and benefits, the patient's daughter felt that perhaps the best choice would be to proceed with primary treatment of pain and discomfort above all else. I did offer treatment of empiric antibiotics and continued imaging to try and determine source of infection, but she denied that and stated that she knew that he would pass regardless of our therapy options, and to just treat her primary symptoms of pain and discomfort. Past Medical History Medical History: 1. History of colon cancer status post right hemicolectomy. 2. History of lung cancer status post chemoradiation, now with metastatic lesions to the liver. 3. COPD, on 2 L per nasal cannula. 4. Tobacco abuse Surgical History: 1. History of previous right knee surgery. 2. Status post right hemicolectomy Pertinent Family History: Significant for myocardial infarction in his father of a heart attack somewhere around the age of 62. Past Social History: Quit smoking. . Has children that are healthy. Retired and lives here in [place], [place]. Does not drink alcohol. Tobacco Use: Former Smoker Do you dip or chew tobacco: No In the Past 12 Months, Have Used or Abuse Any of the Following Substance: None Alcohol Use: None Medication / Allergies Home Medications: Home Medications Medication Instructions Recorded Confirmed Type gabapentin 600 mg tablet 600 mg PO QID #120 tab 05/11/18 07/19/18 Rx hydrocodone 5 mg-acetaminophen 325 See Rx Instructions PO Q6H PRN 06/28/18 07/19/18 Rx mg tablet #150 tab Allergies/Adverse Reactions: Allergies Allergy/AdvReac Type Severity Reaction Status Date / Time Sulfa (Sulfonamide AdvReac Intermediate upset Verified 07/19/18 05:40 Antibiotics) stomach Review of Systems - Review of Systems ROS Unobtainable: Due to Mental Status (Patient is agitated, nonverbal. In writhing pain.) Exam - Vitals Vital Signs: Vital Signs Temperature 98.0 F Temperature Source Temporal Artery Scan Pulse Rate [Pulse Oximeter] 127 Pulse Rate 128 Respiratory Rate 24 Blood Pressure [Left Arm] 127/59 Blood Pressure 125/87 Pulse Ox 88 Oxygen Delivery Method Nasal Cannula Height 6 ft Weight 120 lb - General General Appearance: Severe Distress - Head Head Exam: Atraumatic Additional Head Exam Details: Temporal wasting. - ENT ENT Exam: POSITIVE: Mucous Membranes Dry - Neck Neck Exam: JVP is not Raised - Respiratory Respiratory Exam: POSITIVE: Normal to Percussion and Palpation, Coarse Breath Sounds Additional Respiratory Exam Details: Breathing is labored. - Cardiovascular Cardiovascular Exam: POSITIVE: No Murmur, No Clicks, No Gallops, No Rubs, Tachycardia, No JVD - GI/Abdominal GI/Abdominal Exam: POSITIVE: Normal Bowel Sounds, Non Distended, Soft - Rectal Rectal Exam: POSITIVE: Deferred - External Exam: POSITIVE: Deferred Exam: POSITIVE: Deferred - Extremities Extremities Exam: POSITIVE: No Edema Present, No Cyanosis Present, Clubbing Present - Neurological Neurological Exam: POSITIVE: Moves All Extremities Equally, Altered (Moving all extremities, , [place] respirations) - Psychiatric Psychiatric Exam: POSITIVE: Anxious, Agitated - Central Line Examination Central Line Present on Admission: No Results - Labs CBC and BMP: 07/19/18 06:05 07/19/18 05:37 Additional Lab Results: Laboratory Results 07/19/18 07/19/18 05:37 06:05 WBC 22.07 H RBC 2.87 L Hgb 8.3 L Hct 26.8 L MCV 93.4 H MCH 28.9 MCHC 31.0 L RDW Std Deviation 44.3 RDW Coeff of Dianne 13.7 Plt Count 571 H MPV 9.1 Immature Gran % (Auto) 0.5 Neut % (Auto) 92.2 H Lymph % (Auto) 2.7 L Barber % (Auto) 4.5 L Eos % (Auto) 0 Baso % (Auto) 0.1 Immature Gran # (Auto) 0.11 Neut # (Auto) 20.35 Lymph # (Auto) 0.59 Barber # (Auto) 0.99 H Eos # (Auto) 0.01 Baso # (Auto) 0.02 WBC Morphology Comment Normal morphology Plt Morphology Comment Normal morphology RBC Morph Comment Normal morphology Sodium 133 L Potassium 4.5 Chloride 87 L Carbon Dioxide 36 H Anion Gap 10 BUN 18 Creatinine 0.7 Estimated GFR > 60 BUN/Creatinine Ratio 25.71 H Glucose 180 H Calculated Osmolality 282.0 Calcium 8.9 Magnesium 3.0 H Total Bilirubin 0.5 AST 42 ALT 13 L Alkaline Phosphatase 173 H C-Reactive Protein 18.7 H Total Protein 6.4 Albumin 3.5 Globulin 3.0 Albumin/Globulin Ratio 1.10 L Assessment and Plan - Patient Problems (1) Sepsis Current Visit: Yes Status: Acute Code(s): A41.9 - Sepsis, unspecified organism Qualifiers: Sepsis type: sepsis due to unspecified organism Qualified Code(s): A41.9 - Sepsis, unspecified organism (2) Metastatic cancer to liver Current Visit: Yes Status: Acute Code(s): C78.7 - Secondary malignant neoplasm of liver and intrahepatic bile duct (3) Squamous cell carcinoma of lung Current Visit: Yes Status: Acute Onset Date: 08/02/16 Code(s): C34.90 - Malignant neoplasm of unspecified part of unspecified bronchus or lung Qualifiers: Laterality: unspecified laterality (4) History of colon cancer Current Visit: Yes Status: Chronic Onset Date: 04/05/16 Code(s): Z85.038 - Personal history of other malignant neoplasm of large intestine (5) COPD (chronic obstructive pulmonary disease) with emphysema Current Visit: Yes Status: Acute Onset Date: 05/07/16 Code(s): J43.9 - Emphysema, unspecified Qualifiers: Emphysema type: unspecified Qualified Code(s): J43.9 - Emphysema, unspecified - Assessment / Plan Additional Assessment/Plan Details: Patient is currently admitted to the hospital. It was unclear whether the family would want to proceed with further workup and evaluation. However in discussion with his daughter, Nikki, she does not believe that the patient would want any further workup, evaluation, her treatment of infections or other problems. He was on the hospice program, and was at home, but given that he was found down on the floor, covered in feces, he was brought in for further evaluation at that time. The patient's family understands completely that the patient will regardless of any options that we have for aggressive therapy here. At this time, the patient's family requests that we treat primary symptoms of pain and discomfort. We spoke through the process of de-escalating care with respect to the patient's wishes for care. Nikki agrees with that plan and would wish to proceed with again, treatment of primary symptoms of pain and discomfort, knowing full well that he pass on as result of his cancer and sepsis picture. I will not write for any medications other than those such as morphine for pain control and discomfort, Valium for agitation, Tylenol for fevers.
[2018-07-19] MEDS ORDERED: LIDOCAINE HCL 2 % 10 ML JELLY URO-JECT TOPICAL PRN (09:33)
--- NOTE | 2018-07-19 13:16 | DCSUMMARY ---
Hospitalization Summary Admit Date: 07/19/2018 Discharge Date: 07/19/18 Primary Diagnosis:: metastatic cancer to the liver Hospital Course: This very pleasant 67-year-old male that presented earlier this morning after being found down on the floor, and was admitted to determine best course of action in terms of workup and evaluation. After discussion with his daughter, Nikki, it was determined that the patient was actually in the final stages of dying. He had been in hospice care, but because of the nature of finding him today on the floor, was very concerning as to what to do. After lengthy discussion of treatment options versus other options for care, the family felt that the best thing to do for the patient would be to control primary symptoms of pain and discomfort knowing full well that the patient would pass on as a result of his metastatic cancer. He presented with findings of sepsis without clear etiology. The patient passed at 9:40 AM. On exam, Pupils were fixed, dilated, and unresponsive to light. There were no spontaneous respirations. There were no breath sounds on auscultation. There were no heart sounds on auscultation. There was no palpable pulse. Exam - Vitals Vital Signs: Vital Signs Data Peritnent Studies: Laboratory Results 07/19/18 07/19/18 05:37 06:05 WBC 22.07 H RBC 2.87 L Hgb 8.3 L Hct 26.8 L MCV 93.4 H MCH 28.9 MCHC 31.0 L RDW Std Deviation 44.3 RDW Coeff of Dianne 13.7 Plt Count 571 H MPV 9.1 Immature Gran % (Auto) 0.5 Neut % (Auto) 92.2 H Lymph % (Auto) 2.7 L Amelia % (Auto) 4.5 L Eos % (Auto) 0 Baso % (Auto) 0.1 Immature Gran # (Auto) 0.11 Neut # (Auto) 20.35 Lymph # (Auto) 0.59 Amelia # (Auto) 0.99 H Eos # (Auto) 0.01 Baso # (Auto) 0.02 WBC Morphology Comment Normal morphology Plt Morphology Comment Normal morphology RBC Morph Comment Normal morphology Sodium 133 L Potassium 4.5 Chloride 87 L Carbon Dioxide 36 H Anion Gap 10 BUN 18 Creatinine 0.7 Estimated GFR > 60 BUN/Creatinine Ratio 25.71 H Glucose 180 H Calculated Osmolality 282.0 Calcium 8.9 Magnesium 3.0 H Total Bilirubin 0.5 AST 42 ALT 13 L Alkaline Phosphatase 173 H C-Reactive Protein 18.7 H Total Protein 6.4 Albumin 3.5 Globulin 3.0 Albumin/Globulin Ratio 1.10 L Patient Problems - Patient Problem List (1) Sepsis Status: Acute Code(s): A41.9 - Sepsis, unspecified organism Qualifiers: Sepsis type: sepsis due to unspecified organism Qualified Code(s): A41.9 - Sepsis, unspecified organism Category: Medical (2) Metastatic cancer to liver Status: Acute Code(s): C78.7 - Secondary malignant neoplasm of liver and intrahepatic bile duct Category: Medical (3) Squamous cell carcinoma of lung Status: Acute Onset Date: 08/02/16 Code(s): C34.90 - Malignant neoplasm of unspecified part of unspecified bronchus or lung Qualifiers: Laterality: unspecified laterality Category: Medical (4) History of colon cancer Status: Chronic Onset Date: 04/05/16 Code(s): Z85.038 - Personal history of other malignant neoplasm of large intestine Category: Medical (5) COPD (chronic obstructive pulmonary disease) with emphysema Status: Acute Onset Date: 05/07/16 Code(s): J43.9 - Emphysema, unspecified Qualifiers: Emphysema type: unspecified Qualified Code(s): J43.9 - Emphysema, unspecified Category: Medical
== END 2018-07-19 09:40 | disposition expired ==
LOC: ER 05:30 → MED/SURG 07:27 → INTOOBSV 07:27 → MED/SURG 07:29
PROVIDERS: ADMIT Internal Medicine; ATTEND Internal Medicine